=== PATIENT | male | born 1950 | race Caucasian/White ===

== ENCOUNTER 2018-10-02 01:55 | Inpatient (IN) | payer MEDICARE ==
--- NOTE | 2018-10-02 02:30 | ED Physician Chart ---
ED Chief Complaint/HPI - Patient Information Date Seen:: 10/02/18 Time Seen:: 02:15 Chief Complaint:: bilateral leg and right hip pain History of Present Illness:: Patient was experiencing bilateral leg and right hip pain at his extended care facility. He was given 8 mg of Dilaudid orally after which his blood pressure dropped to 85/53. Paramedics were called. He was cleared to come here by basic ambulance. His blood pressure increased to 116/70. He complains primarily of right hip pain. Patient is bedridden and wheelchair bound. No recent trauma. Allergies:: Allergies Allergy/AdvReac Type Severity Reaction Status Date / Time No Known Allergies Allergy Verified 10/02/18 02:04 Vitals:: Vital Signs - 8 hr 10/02/18 01:55 Temp 97.7 F HR 75 RR 18 BP 133/69 O2 Sat % 94 Historian:: Patient Review:: Nurse's Note Reviewed ED Review of Systems - Review of Systems General/Constitutional: No fever, No chills Skin: No skin lesions Head: No headache Eyes: No loss of vision ENT: No earache Neck: No neck pain Cardio Vascular: No chest pain, No palpitations Pulmonary: No SOB GI: No nausea, No vomiting, No diarrhea G/U: No dysuria Musculoskeletal: Bone or joint pain, Muscle pain Endocrine: No polyuria Psychiatric: No prior psych history Hematopoietic: No bruising Allergic/Immuno: No urticaria Neurological: No syncope ED Past Medical History - Past Medical History Past Medical History: Asthma/COPD, Other (status post sepsis; status post urinary tract infection; congestive heart failure; malnutrition; hyperlipidemia ; status post myocardial infarction; benign prostatic hypertrophy; neuropathy; hypertension; high clavicular line) Family History: None Social History: Smoker, Care Facility Surgical History: other (abdominal) Psychiatricy History: None Family Medical History - Family Member Mother History Unknown: Yes ED Physical Exam - Physical Examination General/Constitutional: Awake Other Gen/Cons comments:: Chronically ill-appearing Head: Atraumatic Eyes: Lids, conjuctiva normal, PERRL Skin: Nl inspection, No rash, No skin lesions, No ecchymosis ENMT: External ears, nose nl, Nasal exam nl, Lips, teeth, gums nl Neck: No nuchal rigidity Respiratory: Nl effort/Exclusion, Clear to Auscultation Cardio Vascular: RRR GI: No tenderness/rebounding/guarding : No CVA tenderness Extremities: No tenderness or effusion Other Extremities comments:: Mild extension deformity of ankles and feet Neuro/Psych: No focal deficits ED Labs/Radiology/EKG Results - Lab Results Results: Abnormal Lab Results 10/02/18 10/02/18 02:45 02:45 WBC 10.6 RBC 4.69 Hgb 15.0 Hct 44.1 MCV 94.1 MCH 32.0 H MCHC Differential 34.0 RDW 14.2 Plt Count 300 MPV 7.6 Neutrophils % 83.1 H Lymphocytes % 12.5 L Monocytes % 2.5 Eosinophils % 1.0 Basophils % 0.9 Sodium 138 Potassium 3.7 Chloride 103 Carbon Dioxide 25.7 Anion Gap 13.0 BUN 18 Creatinine 0.8 Est GFR ( Amer) > 60.0 Est GFR (Non-Af Amer) > 60.0 BUN/Creatinine Ratio 22.5 Glucose 113 H Calcium 9.7 Total Bilirubin 0.3 AST 12 L ALT 14 Alkaline Phosphatase 79 Total Protein 6.8 Albumin 3.7 L Globulin 3.1 Albumin/Globulin Ratio 1.2 - EKG Interpretations Rate & Rhythm: normal sinus rhythm with a rate of 75 [place]: normal axis ED Septic Shock - . Is Septic Shock (SBP<90, OR Lactate>4 mmol\L) present?: No - <6hrs of presentation: Vital Signs: Vital Signs - 8 hr 10/02/18 01:55 Temp 97.7 F HR 75 RR 18 BP 133/69 O2 Sat % 94 ED Reassessment (Disposition) - Reassessment Reassessment Condition:: Improved - Diagnosis Diagnosis:: Hypotension, subsided; multiple sclerosis; acute exacerbation of chronic pain - Patient Disposition Admitted to:: Telemetry Spoke to:: Chase Munoz Admitting Medical Physician:: Chase Munoz Condition at Disposition:: Stable, Unchanged
[2018-10-02 02:53] LABS: % BASOPHILS 0.9 % (0.0-2.0); % LYMPHOCYTES 12.5 % (20.0-50.0); % MONOCYTES 2.5 % (2.0-10.0); % NEUTROPHILS 83.1 % (40.0-80.0); BASOPHILE ABSOLUTE 0.1 Th/cumm (0-0.2); EOSINOPHILE ABSOLUTE 0.1 Th/cmm (0.1-0.4); HEMATOCRIT 44.1 % (41.0-60); LYMPHOCYTE ABSOLUTE 1.3 Th/cmm (1.5-3.0); MEAN CELL VOLUME 94.1 fl (80-99); MEAN PLATELET VOLUME 7.6 fl; MONOCYTE ABSOLUTE 0.3 Th/cmm (0.3-1.0); NEUTROPHILE ABSOLUTE 8.8 Th/cmm (1.8-8.0); PLATELET COUNT 300 Th/cmm (150-400); RED BLOOD COUNT 4.69 Mil/cmm (3.80-5.80); RED CELL DISTRIBUTION WIDTH 14.2 % (11.5-20.0); WHITE BLOOD COUNT 10.6 Th/cmm (4.8-10.8)
[2018-10-02 03:08] LABS: ALB/GLOB RATIO 1.2 (1.0-1.8); ALBUMIN 3.7 gm/dL (4.2-5.5); ALKALINE PHOSPHATASE 79 U/L (34-104); BILIRUBIN,TOTAL 0.3 mg/dL (0.3-1.0); BUN - UREA NITROGEN 18 mg/dL (7-25); CALCIUM SERUM 9.7 mg/dL (8.6-10.3); CARBON DIOXIDE 25.7 mEq/L (21.0-31.0); CHLORIDE 103 mEq/L (98-107); CREATININE - SERUM 0.8 mg/dL (0.7-1.3); GFR AFRICAN-AMERICAN > 60.0 ml/min (>90); GFR NON AFRICAN-AMERICAN > 60.0 ml/min; GLUCOSE 113 mg/dL (70-105); POTASSIUM SERUM 3.7 mEq/L (3.5-5.1); SGOT 12 U/L (13-39); SGPT/ALT 14 U/L (7-52); SODIUM SERUM 138 mEq/L (136-145); TOTAL PROTEIN,SERUM 6.8 gm/dL (6.0-8.3)
[2018-10-02] MEDS ORDERED: HYDROmorphone 1 mg/mL 1mL Syr IVP STA (06:39)
[2018-10-02] MEDS ORDERED: Sodium Chloride 0.9% 1,000 ML IV ONE (06:40)
[2018-10-02] MEDS ORDERED: HYDROmorphone 1 mg/mL 1mL Syr ONE (06:42)
[2018-10-02] MEDS ORDERED: HYDROmorphone 2 mg/mL 1mL Vial IVP PRN (07:02)
[2018-10-02] MEDS ORDERED: Albuterol/Ipratropium Neb 3 ML AERS HHN PRN (08:19)
[2018-10-02] MEDS ORDERED: Magnesium Hydroxide (MOM) 30 mL UDC PO PRN (08:20)
[2018-10-02] MEDS ORDERED: PROTEIN HYDROLYS PO SCH (09:00)
[2018-10-02] MEDS ORDERED: AMINO ACIDS PO SCH (09:00)
[2018-10-02] MEDS ORDERED: [UNRECOGNIZED DRUG - OTHER] PO SCH (09:00)
--- NOTE | 2018-10-02 09:39 | Diagnostic Imaging Report ---
Portable chest x-ray HISTORY: Cough The heart size appears somewhat generous. No focal pulmonary processes. No hilar or mediastinal abnormalities. IMPRESSION: 1. No acute pulmonary processes.
[2018-10-02] MEDS: Atorvastatin Calcium 10 MG TAB PO SCH (10:51)
[2018-10-02] MEDS: Aspirin 81mg Chewable Tab PO SCH (10:52)
[2018-10-02] MEDS: HYDROmorphone 2 mg/mL 1mL Vial IVP PRN ×3 (10:53→23:41)
[2018-10-02] MEDS: Enoxaparin 40 mg/0.4 mL 0.4mL Syr SUBQ SCH (10:54)
[2018-10-02] MEDS: fentaNYL 25 mcg/hr Tdm Patch TD SCH (12:53)
[2018-10-02] MEDS: Multivitamin Tab PO SCH (12:53)
--- NOTE | 2018-10-03 00:05 | History & Physical ---
ADMIT DATE: 10/02/2018 CHIEF COMPLAINT: Intractable severe bilateral leg pain. HISTORY OF PRESENT ILLNESS: The patient is a 68-year-old male admitted from the Emergency Room to telemetry floor of [facility] due to multiple complicated medical conditions. The patient complained of intractable pain in both legs and wanted to come to the Emergency Room and being admitted. The patient does have history of chronic pain syndrome, partially from polyneuropathy. The patient was seen by the pain specialist in the assisted, was given Dilaudid ___ p.o. q.4 hours. This apparently is in light of the fact the patient is obese. On physical examination, he has stage 3 decubitus ulcer in the sacral area. The patient also has COPD and his other RT protocol. According to the patient history, the patient has a history of coronary artery disease, status post KS with congestive heart failure. I will order BNP as it is not ordered. Additionally, the patient is also status post CVA and he also has history of multiple sclerosis. Because of this diagnosis, patient is being pretty much bedridden with resultant decubitus ulcer despite the fact the patient has been on vitamin C and zinc sulfate. PAST MEDICAL HISTORY: Extensive; polyneuropathy, chronic pain syndrome, decubitus ulcer as a result, COPD, congestive heart failure from coronary artery disease, status post KS, status post CVA, multiple sclerosis, obesity. PAST SURGICAL HISTORY: Denies significant past surgical history. MEDICATIONS: See medication reconciliation list. ALLERGIES: No known drug allergy. FAMILY HISTORY: Noncontributory. SOCIAL HISTORY: Denies history of tobacco, alcohol or IV drug abuse. REVIEW OF SYSTEMS: Per HPI. PHYSICAL EXAMINATION: GENERAL: Well-developed, obese male in no acute distress. SKIN: There is stage 3 decubitus ulcer in sacral area. EXTREMITIES: No clubbing or cyanosis. There is 1+ edema. NEUROLOGICAL: Unremarkable. LABORATORY DATA: Reviewed as seen from the computer. ASSESSMENT AND PLAN: 1. Decubitus ulcer stage 3 in sacral area: Will turn patient every 2 hours and continue zinc sulfate, vitamin C to facilitate wound healing, also wound care daily. 2. Chronic obstructive pulmonary disease exacerbation: RT protocol. 3. History of polyneuropathy, severe with chronic pain syndrome. We are adjusting per medications needed. 4. Congestive heart failure: I will order BNP and it is properly due to coronary artery disease, status post myocardial infarction. 5. Status post CVA with difficulty walking. 6. History of multiple sclerosis. 7. Obesity. 8. DVT prophylaxis. JOB# [id number]
[2018-10-03] MEDS ORDERED: Pneumococcal Vaccine 0.5 mL Vial IM ONE (09:00)
[2018-10-03] MEDS ORDERED: Influenza Vaccine (65 yr & older) 0.5 ml Syr IM ONE (09:00)
[2018-10-03] MEDS: Atorvastatin Calcium 10 MG TAB PO SCH (09:11)
[2018-10-03] MEDS: Multivitamin Tab PO SCH (09:13)
[2018-10-03] MEDS: Aspirin 81mg Chewable Tab PO SCH (09:13)
[2018-10-03] MEDS: Enoxaparin 40 mg/0.4 mL 0.4mL Syr SUBQ SCH (09:14)
[2018-10-03] MEDS: HYDROmorphone 2 mg/mL 1mL Vial IVP PRN ×5 (09:26→23:05)
--- NOTE | 2018-10-03 23:43 | Internal Medicine Prog Note ---
Internal Medicine Subjective - Subjective Service Date: 10/03/18 Patient seen and examined:: without staff Patient is:: asleep, eyes closed, in bed Per staff patient has:: no adverse event Internal Medicine Objective - Results Result Diagrams: 10/02/18 02:45 10/02/18 02:45 Recent Labs: Laboratory Last Values WBC 10.6 Th/cmm (4.8-10.8) 10/02/18 02:45 RBC 4.69 Mil/cmm (3.80-5.80) 10/02/18 02:45 Hgb 15.0 gm/dL (12-16) 10/02/18 02:45 Hct 44.1 % (41.0-60) 10/02/18 02:45 MCV 94.1 fl (80-99) 10/02/18 02:45 MCH 32.0 pg (27.0-31.0) H 10/02/18 02:45 MCHC Differential 34.0 pg (28.0-36.0) 10/02/18 02:45 RDW 14.2 % (11.5-20.0) 10/02/18 02:45 Plt Count 300 Th/cmm (150-400) 10/02/18 02:45 MPV 7.6 fl 10/02/18 02:45 Neutrophils % 83.1 % (40.0-80.0) H 10/02/18 02:45 Lymphocytes % 12.5 % (20.0-50.0) L 10/02/18 02:45 Monocytes % 2.5 % (2.0-10.0) 10/02/18 02:45 Eosinophils % 1.0 % (0.0-5.0) 10/02/18 02:45 Basophils % 0.9 % (0.0-2.0) 10/02/18 02:45 Sodium 138 mEq/L (136-145) 10/02/18 02:45 Potassium 3.7 mEq/L (3.5-5.1) 10/02/18 02:45 Chloride 103 mEq/L (98-107) 10/02/18 02:45 Carbon Dioxide 25.7 mEq/L (21.0-31.0) 10/02/18 02:45 Anion Gap 13.0 (7.0-16.0) 10/02/18 02:45 BUN 18 mg/dL (7-25) 10/02/18 02:45 Creatinine 0.8 mg/dL (0.7-1.3) 10/02/18 02:45 Est GFR ( Amer) > 60.0 ml/min (>90) 10/02/18 02:45 Est GFR (Non-Af Amer) > 60.0 ml/min 10/02/18 02:45 BUN/Creatinine Ratio 22.5 10/02/18 02:45 Glucose 113 mg/dL (70-105) H 10/02/18 02:45 Calcium 9.7 mg/dL (8.6-10.3) 10/02/18 02:45 Total Bilirubin 0.3 mg/dL (0.3-1.0) 10/02/18 02:45 AST 12 U/L (13-39) L 10/02/18 02:45 ALT 14 U/L (7-52) 10/02/18 02:45 Alkaline Phosphatase 79 U/L (34-104) 10/02/18 02:45 Total Protein 6.8 gm/dL (6.0-8.3) 10/02/18 02:45 Albumin 3.7 gm/dL (4.2-5.5) L 10/02/18 02:45 Globulin 3.1 gm/dL 10/02/18 02:45 Albumin/Globulin Ratio 1.2 (1.0-1.8) 10/02/18 02:45 - Physical Exam Vitals and I&O: Vital Signs Temp 98.5 F 10/03/18 20:00 Pulse 65 10/03/18 20:00 Resp 18 10/03/18 20:00 BP 130/67 10/03/18 20:00 Pulse Ox 97 10/03/18 20:00 Intake & Output 10/03/18 10/03/18 10/04/18 06:59 18:59 06:59 Intake Total 600 Output Total 1200 Balance -600 Weight (lbs) 90.265 kg Intake: Oral 600 Output: Urine 1200 Other: # Bowel Movements 1 Stool Characteristics Formed Weight Source Bedscale Active Medications: Current Medications Acetaminophen (Tylenol) 325 mg PO Q6HR PRN PRN Reason: Pain (Mild) Stop: 12/01/18 08:18 Last Admin: 11/16/18 21:26 Dose: 325 mg Albuterol/Ipratropium (Duoneb Neb) 3 ml HHN Q6HR PRN PRN Reason: Shortness of Breath Stop: 12/01/18 08:18 Ascorbic Acid (Vitamin C) 500 mg PO DAILY [facility] Stop: 12/01/18 10:59 Last Admin: 10/03/18 09:13 Dose: 500 mg Aspirin (Aspirin Chewable) 81 mg PO DAILY [facility] Stop: 12/01/18 08:59 Last Admin: 10/03/18 09:13 Dose: 81 mg Atorvastatin Calcium (Lipitor) 20 mg PO DAILY [facility] Stop: 12/01/18 10:59 Last Admin: 10/03/18 09:11 Dose: 20 mg Baclofen (Lioresal) 10 mg PO QID [facility] Stop: 12/01/18 08:59 Last Admin: 10/03/18 20:58 Dose: 10 mg Bisacodyl (Dulcolax 10 Mg Supp) 10 mg RC DAILY PRN PRN Reason: Constipation Stop: 12/01/18 08:19 Diazepam (Valium) 5 mg PO BID [facility]; Protocol Stop: 12/01/18 08:59 Diazepam (Valium) 5 mg PO BID [facility]; Protocol Stop: 12/01/18 21:59 Last Admin: 10/03/18 16:19 Dose: 5 mg Docusate Sodium (Colace) 100 mg PO DAILY [facility] Stop: 12/01/18 08:59 Last Admin: 10/03/18 09:12 Dose: 100 mg Duloxetine HCl (Cymbalta) 30 mg PO DAILY [facility]; Protocol Stop: 12/01/18 08:59 Enoxaparin Sodium (Lovenox) 40 mg SUBQ DAILY [facility] Stop: 12/01/18 08:59 Last Admin: 10/03/18 09:14 Dose: 40 mg Fentanyl (Duragesic 25 Mcg/Hr Tdm Patch) 1 patch TD Q72HR [facility]; Protocol Stop: 12/01/18 11:59 Last Admin: 10/02/18 12:53 Dose: 1 patch Finasteride (Proscar) 5 mg PO DAILY [facility]; Protocol Stop: 12/01/18 08:59 Last Admin: 10/03/18 09:12 Dose: 5 mg Folic Acid (Folate) 1 mg PO DAILY [facility] Stop: 12/01/18 08:59 Last Admin: 10/03/18 09:12 Dose: 1 mg Furosemide (Lasix) 20 mg PO DAILY [facility] Stop: 12/01/18 08:59 Last Admin: 10/03/18 09:12 Dose: 20 mg Gabapentin (Neurontin) 1,200 mg PO TID [facility] Stop: 12/01/18 10:44 Last Admin: 10/03/18 20:58 Dose: 1,200 mg Hydromorphone HCl (Dilaudid) 2 mg IVP Q4HR PRN PRN Reason: Severe Pain Stop: 12/01/18 10:36 Last Admin: 10/03/18 23:05 Dose: 2 mg Hydromorphone HCl (Dilaudid) 8 mg PO Q4H PRN PRN Reason: Pain (Moderate) Stop: 10/09/18 08:19 Hydromorphone HCl (Dilaudid) 2 mg IVP Q4HR PRN PRN Reason: severe pain Stop: 12/01/18 22:04 Last Admin: 10/03/18 19:18 Dose: 2 mg Lorazepam (Ativan) 1 mg PO Q6HR PRN; Protocol PRN Reason: Anxiety Stop: 12/01/18 08:19 Magnesium Hydroxide (Milk Of Magnesia) 30 ml PO HS PRN PRN Reason: Constipation Stop: 12/01/18 08:19 Multivitamins/Vitamin C (Theragran) 1 tab PO DAILY [facility] Stop: 12/01/18 10:59 Last Admin: 10/03/18 09:13 Dose: 1 tab Senna (Senna) 8.6 mg PO HS [facility] Stop: 12/01/18 20:59 Last Admin: 10/03/18 20:59 Dose: 8.6 mg Spironolactone (Aldactone) 25 mg PO DAILY [facility] Stop: 12/01/18 08:59 Last Admin: 10/03/18 09:13 Dose: 25 mg Tamsulosin HCl (Flomax) 0.4 mg PO DAILY [facility] Stop: 12/01/18 08:59 Last Admin: 10/03/18 09:13 Dose: 0.4 mg Zinc Sulfate (Zinc Sulfate) 220 mg PO DAILY [facility] Stop: 12/01/18 10:59 Last Admin: 10/03/18 09:11 Dose: 220 mg General: weak, lethargic, congested HEENT: NC/AT, PERRLA, EOMI, anicteric sclerae Neck: Supple, No JVD, No thyromegaly, No LAD Lungs: wheezing Cardiovascular: RRR Abdomen: soft, non-tender Extremities: edema, other Neurological: no change Internal Medicine Assmt/Plan - Assessment Assessment: Chronic pain syndrome exacerbation: adjusting pain meds as needed. Decubitus ulcer: stage 3 in sacral area; wound care, turn pt q2h; continue Zinc sulfate and VitC to facilitate wound heeling. COPD: RT protocol. CHF: stable. CAD: s/p PA s/p CVA ALOC: improving. h/o MS DVT prophylaxis Nutritional Asmnt/Malnutr-PDOC - Dietary Evaluation Malnutrition Findings (Please click <Entered> for more info): Nutritional Asmnt/Malnutrition Start: 10/03/18 12: 03 Text: Status: Complete Freq: Protocol: Document 10/03/18 12:45 MMULHERN (Rec: 10/03/18 12:55 MMULHERN ROBINA- [id number]) Nutritional Asmnt/Malnutrition Patient General Information Nutritional Screening High Risk Consult Diagnosis Exacerbation of chronic pain, multiple sclerosis Pertinent Medical Hx/Surgical Hx Polyneuropathy, chronic pain syndrome, decubitus ulcer, COPD, congestive heart failure from coronary artery disease, status post PA, status post CVA, multiple sclerosis, Obesity Subjective Information Consult received for left lateral and medial malleoli ulcers. Patient in bed at time of visit. States he has no problems with chewing or swallowing and has no difficulty with current diet order. Familiar with cardiac diet. Current Diet Order/ Nutrition Support Cardiac Patient / S.O Not Indicated Pertinent Medications Vitamin C, lipitor, dulcolax, colace, folate, lasix, MOM, theragran, zinc sulfate Pertinent Labs (10/02) albumin 3.7 Nutritional Hx/Data Height 1.83 m Height (Calculated Centimeters) 182.9 Current Weight (lbs) 102.058 kg Weight (Calculated Kilograms) 102.1 Weight (Calculated Grams) 853402.3 [place] Body Weight 178 % [place] Body Weight 126 Body Mass Index (BMI) 30.5 Recent Weight Change No Weight Status Obese GI Symptoms GI Symptoms None Last BM 10/04 x1 Difficult in: None Food Allergies No Cultural/Ethnic/Jewish Belief none indicated Usual diet at home unknown Skin Integrity/Comment: [place] 13, per wound care notes, wounds on Sacral- Coccygeal area, Left buttock near ischium, Right posterior heel, Right medial heel/foot, Left heel, Left dorsal foot: Estimated Nutritional Goals BEE in Kcals: Adj wt of IBW Calories/Kcals/Kg using 86.2kg Adj wt 25-30 kcal /kg Kcals Calculated ~3124-3089 kcal/day Protein: Adj wt of IBW Protein g/k.1-1.3 gm/kg - wounds Protein Calculated 95-110 gm/day Fluid: ml ~7604-0509 kcal/day Nutritional Problem 1. Problem Problem Increased nutrient needs related to Etiology impaired skin integrity as evidenced by Signs/Symptoms: wounds on Sacral-Coccygeal area, Left buttock near ischium, Right posterior heel, Right medial heel/foot, Left heel, Left dorsal foot Intervention/Recommendation Comments 1. Continue Cardiac diet as tolerated by patient d/t cardiac hx. 2. If oral intake is adequate, current diet order provides adequate protein. 3. Continue MVI, Vitamin C, and Zinc supplementation to assist with wound healing. Expected Outcomes/Goals Expected Outcomes/Goals Oral intake >75% of meals, weight stable or trend toward ideal body weight, improved skin integrity F/U MR 10/06-
[2018-10-04] MEDS: HYDROmorphone 2 mg/mL 1mL Vial IVP PRN ×5 (04:56→21:08)
[2018-10-04] MEDS: Atorvastatin Calcium 10 MG TAB PO SCH (09:00)
[2018-10-04] MEDS: Enoxaparin 40 mg/0.4 mL 0.4mL Syr SUBQ SCH (09:00)
[2018-10-04] MEDS: Aspirin 81mg Chewable Tab PO SCH (09:01)
[2018-10-04] MEDS: Multivitamin Tab PO SCH (09:07)
--- NOTE | 2018-10-04 21:53 | Internal Medicine Prog Note ---
Internal Medicine Subjective - Subjective Service Date: 10/04/18 Patient seen and examined:: without staff Patient is:: verbal, interactive, in bed Patient Complaints of:: congestion Per staff patient has:: no adverse event Internal Medicine Objective - Results Result Diagrams: 10/02/18 02:45 10/02/18 02:45 Recent Labs: Laboratory Last Values WBC 10.6 Th/cmm (4.8-10.8) 10/02/18 02:45 RBC 4.69 Mil/cmm (3.80-5.80) 10/02/18 02:45 Hgb 15.0 gm/dL (12-16) 10/02/18 02:45 Hct 44.1 % (41.0-60) 10/02/18 02:45 MCV 94.1 fl (80-99) 10/02/18 02:45 MCH 32.0 pg (27.0-31.0) H 10/02/18 02:45 MCHC Differential 34.0 pg (28.0-36.0) 10/02/18 02:45 RDW 14.2 % (11.5-20.0) 10/02/18 02:45 Plt Count 300 Th/cmm (150-400) 10/02/18 02:45 MPV 7.6 fl 10/02/18 02:45 Neutrophils % 83.1 % (40.0-80.0) H 10/02/18 02:45 Lymphocytes % 12.5 % (20.0-50.0) L 10/02/18 02:45 Monocytes % 2.5 % (2.0-10.0) 10/02/18 02:45 Eosinophils % 1.0 % (0.0-5.0) 10/02/18 02:45 Basophils % 0.9 % (0.0-2.0) 10/02/18 02:45 Sodium 138 mEq/L (136-145) 10/02/18 02:45 Potassium 3.7 mEq/L (3.5-5.1) 10/02/18 02:45 Chloride 103 mEq/L (98-107) 10/02/18 02:45 Carbon Dioxide 25.7 mEq/L (21.0-31.0) 10/02/18 02:45 Anion Gap 13.0 (7.0-16.0) 10/02/18 02:45 BUN 18 mg/dL (7-25) 10/02/18 02:45 Creatinine 0.8 mg/dL (0.7-1.3) 10/02/18 02:45 Est GFR ( Amer) > 60.0 ml/min (>90) 10/02/18 02:45 Est GFR (Non-Af Amer) > 60.0 ml/min 10/02/18 02:45 BUN/Creatinine Ratio 22.5 10/02/18 02:45 Glucose 113 mg/dL (70-105) H 10/02/18 02:45 Calcium 9.7 mg/dL (8.6-10.3) 10/02/18 02:45 Total Bilirubin 0.3 mg/dL (0.3-1.0) 10/02/18 02:45 AST 12 U/L (13-39) L 10/02/18 02:45 ALT 14 U/L (7-52) 10/02/18 02:45 Alkaline Phosphatase 79 U/L (34-104) 10/02/18 02:45 Total Protein 6.8 gm/dL (6.0-8.3) 10/02/18 02:45 Albumin 3.7 gm/dL (4.2-5.5) L 10/02/18 02:45 Globulin 3.1 gm/dL 10/02/18 02:45 Albumin/Globulin Ratio 1.2 (1.0-1.8) 10/02/18 02:45 - Physical Exam Vitals and I&O: Vital Signs Temp 97.6 F 10/04/18 20:00 Pulse 68 10/04/18 20:00 Resp 18 10/04/18 20:00 BP 134/69 10/04/18 20:00 Pulse Ox 97 10/04/18 20:00 Intake & Output 10/04/18 10/04/18 10/05/18 06:59 18:59 06:59 Intake Total 240 1150 Output Total 1500 1200 Balance -1260 -50 Weight (lbs) 90.265 kg 90.265 kg Intake: Oral 240 1150 Output: Urine 1500 1200 Other: # Bowel Movements 0 0 Weight Source Bedscale Bedscale Active Medications: Current Medications Acetaminophen (Tylenol) 325 mg PO Q6HR PRN PRN Reason: Pain (Mild) Stop: 12/01/18 08:18 Last Admin: 10/02/18 21:26 Dose: 325 mg Albuterol/Ipratropium (Duoneb Neb) 3 ml HHN Q6HR PRN PRN Reason: Shortness of Breath Stop: 12/01/18 08:18 Ascorbic Acid (Vitamin C) 500 mg PO DAILY [facility] Stop: 12/01/18 10:59 Last Admin: 10/04/18 09:00 Dose: 500 mg Aspirin (Aspirin Chewable) 81 mg PO DAILY [facility] Stop: 12/01/18 08:59 Last Admin: 10/04/18 09:01 Dose: 81 mg Atorvastatin Calcium (Lipitor) 20 mg PO DAILY [facility] Stop: 12/01/18 10:59 Last Admin: 10/04/18 09:00 Dose: 20 mg Baclofen (Lioresal) 10 mg PO QID [facility] Stop: 12/01/18 08:59 Last Admin: 10/04/18 21:07 Dose: 10 mg Bisacodyl (Dulcolax 10 Mg Supp) 10 mg RC DAILY PRN PRN Reason: Constipation Stop: 12/01/18 08:19 Diazepam (Valium) 5 mg PO BID [facility]; Protocol Stop: 12/01/18 08:59 Diazepam (Valium) 5 mg PO BID [facility]; Protocol Stop: 12/01/18 21:59 Last Admin: 10/04/18 17:05 Dose: 5 mg Docusate Sodium (Colace) 100 mg PO DAILY [facility] Stop: 12/01/18 08:59 Last Admin: 10/04/18 09:00 Dose: 100 mg Duloxetine HCl (Cymbalta) 30 mg PO DAILY [facility]; Protocol Stop: 12/01/18 08:59 Enoxaparin Sodium (Lovenox) 40 mg SUBQ DAILY [facility] Stop: 12/01/18 08:59 Last Admin: 10/04/18 09:00 Dose: 40 mg Fentanyl (Duragesic 25 Mcg/Hr Tdm Patch) 1 patch TD Q72HR [facility]; Protocol Stop: 12/01/18 11:59 Last Admin: 10/02/18 12:53 Dose: 1 patch Finasteride (Proscar) 5 mg PO DAILY [facility]; Protocol Stop: 12/01/18 08:59 Last Admin: 10/04/18 09:01 Dose: 5 mg Folic Acid (Folate) 1 mg PO DAILY [facility] Stop: 12/01/18 08:59 Last Admin: 10/04/18 09:00 Dose: 1 mg Furosemide (Lasix) 20 mg PO DAILY [facility] Stop: 12/01/18 08:59 Last Admin: 10/04/18 09:00 Dose: 20 mg Gabapentin (Neurontin) 1,200 mg PO TID [facility] Stop: 12/01/18 10:44 Last Admin: 10/04/18 21:07 Dose: 1,200 mg Hydromorphone HCl (Dilaudid) 2 mg IVP Q4HR PRN PRN Reason: Severe Pain Stop: 12/01/18 10:36 Last Admin: 10/04/18 21:08 Dose: 2 mg Hydromorphone HCl (Dilaudid) 8 mg PO Q4H PRN PRN Reason: Pain (Moderate) Stop: 10/09/18 08:19 Hydromorphone HCl (Dilaudid) 2 mg IVP Q4HR PRN PRN Reason: severe pain Stop: 12/01/18 22:04 Last Admin: 10/03/18 19:18 Dose: 2 mg Lorazepam (Ativan) 1 mg PO Q6HR PRN; Protocol PRN Reason: Anxiety Stop: 12/01/18 08:19 Magnesium Hydroxide (Milk Of Magnesia) 30 ml PO HS PRN PRN Reason: Constipation Stop: 12/01/18 08:19 Multivitamins/Vitamin C (Theragran) 1 tab PO DAILY [facility] Stop: 12/01/18 10:59 Last Admin: 10/04/18 09:07 Dose: 1 tab Senna (Senna) 8.6 mg PO HS [facility] Stop: 12/01/18 20:59 Last Admin: 10/04/18 21:08 Dose: 8.6 mg Spironolactone (Aldactone) 25 mg PO DAILY [facility] Stop: 12/01/18 08:59 Last Admin: 10/04/18 09:07 Dose: 25 mg Tamsulosin HCl (Flomax) 0.4 mg PO DAILY [facility] Stop: 12/01/18 08:59 Last Admin: 10/04/18 09:06 Dose: 0.4 mg Zinc Sulfate (Zinc Sulfate) 220 mg PO DAILY [facility] Stop: 12/01/18 10:59 Last Admin: 10/04/18 09:06 Dose: 220 mg General: weak, congested, alert HEENT: NC/AT, PERRLA, EOMI, anicteric sclerae Neck: Supple, No JVD, No thyromegaly, No LAD Lungs: wheezing Cardiovascular: RRR Abdomen: soft, non-tender Extremities: edema, other Neurological: no change Internal Medicine Assmt/Plan - Assessment Assessment: Decubitus ulcer: stage 3 in sacral area; wound care, turn pt q2h; continue Zinc sulfate and VitC to facilitate wound heeling. Chronic pain syndrome exacerbation: adjusting pain meds as needed. COPD: RT protocol. CHF: stable. CAD: s/p IA s/p CVA ALOC: improving. h/o MS DVT prophylaxis Nutritional Asmnt/Malnutr-PDOC - Dietary Evaluation Malnutrition Findings (Please click <Entered> for more info): Nutritional Asmnt/Malnutrition Start: 10/03/18 12: 03 Text: Status: Complete Freq: Protocol: Document 10/03/18 12:45 MMULHERN (Rec: 10/03/18 12:55 MMULHERN ROBINA- [id number]) Nutritional Asmnt/Malnutrition Patient General Information Nutritional Screening High Risk Consult Diagnosis Exacerbation of chronic pain, multiple sclerosis Pertinent Medical Hx/Surgical Hx Polyneuropathy, chronic pain syndrome, decubitus ulcer, COPD, congestive heart failure from coronary artery disease, status post IA, status post CVA, multiple sclerosis, Obesity Subjective Information Consult received for left lateral and medial malleoli ulcers. Patient in bed at time of visit. States he has no problems with chewing or swallowing and has no difficulty with current diet order. Familiar with cardiac diet. Current Diet Order/ Nutrition Support Cardiac Patient / S.O Not Indicated Pertinent Medications Vitamin C, lipitor, dulcolax, colace, folate, lasix, MOM, theragran, zinc sulfate Pertinent Labs (10/02) albumin 3.7 Nutritional Hx/Data Height 1.83 m Height (Calculated Centimeters) 182.9 Current Weight (lbs) 102.058 kg Weight (Calculated Kilograms) 102.1 Weight (Calculated Grams) 117811.3 [place] Body Weight 178 % [place] Body Weight 126 Body Mass Index (BMI) 30.5 Recent Weight Change No Weight Status Obese GI Symptoms GI Symptoms None Last BM 10/04 x1 Difficult in: None Food Allergies No Cultural/Ethnic/Scientologist Belief none indicated Usual diet at home unknown Skin Integrity/Comment: [place] 13, per wound care notes, wounds on Sacral- Coccygeal area, Left buttock near ischium, Right posterior heel, Right medial heel/foot, Left heel, Left dorsal foot: Estimated Nutritional Goals BEE in Kcals: Adj wt of IBW Calories/Kcals/Kg using 86.2kg Adj wt 25-30 kcal /kg Kcals Calculated ~7870-5413 kcal/day Protein: Adj wt of IBW Protein g/k.1-1.3 gm/kg - wounds Protein Calculated 95-110 gm/day Fluid: ml ~2716-0916 kcal/day Nutritional Problem 1. Problem Problem Increased nutrient needs related to Etiology impaired skin integrity as evidenced by Signs/Symptoms: wounds on Sacral-Coccygeal area, Left buttock near ischium, Right posterior heel, Right medial heel/foot, Left heel, Left dorsal foot Intervention/Recommendation Comments 1. Continue Cardiac diet as tolerated by patient d/t cardiac hx. 2. If oral intake is adequate, current diet order provides adequate protein. 3. Continue MVI, Vitamin C, and Zinc supplementation to assist with wound healing. Expected Outcomes/Goals Expected Outcomes/Goals Oral intake >75% of meals, weight stable or trend toward ideal body weight, improved skin integrity F/U MR 10/06-
[2018-10-05] MEDS: HYDROmorphone 2 mg/mL 1mL Vial IVP PRN ×6 (01:50→19:15)
[2018-10-05 04:39] LABS: % BASOPHILS 0.5 % (0.0-2.0); % EOSINOPHILS 3.7 % (0.0-5.0); % LYMPHOCYTES 26.3 % (20.0-50.0); % NEUTROPHILS 63.5 % (40.0-80.0); EOSINOPHILE ABSOLUTE 0.2 Th/cmm (0.1-0.4); HEMATOCRIT 44.2 % (41.0-60); HEMOGLOBIN 14.3 gm/dL (12-16); LYMPHOCYTE ABSOLUTE 1.7 Th/cmm (1.5-3.0); MEAN CELL VOLUME 94.8 fl (80-99); MEAN CORPUSCULAR HEMOGLOBIN 30.7 pg (27.0-31.0); MEAN CORPUSCULAR HGB CONC 32.4 pg (28.0-36.0); MEAN PLATELET VOLUME 7.8 fl; MONOCYTE ABSOLUTE 0.4 Th/cmm (0.3-1.0); PLATELET COUNT 288 Th/cmm (150-400); RED BLOOD COUNT 4.66 Mil/cmm (3.80-5.80); RED CELL DISTRIBUTION WIDTH 14.1 % (11.5-20.0); WHITE BLOOD COUNT 6.3 Th/cmm (4.8-10.8)
[2018-10-05 05:14] LABS: ALB/GLOB RATIO 1.2 (1.0-1.8); ALBUMIN 3.5 gm/dL (4.2-5.5); ALKALINE PHOSPHATASE 69 U/L (34-104); ANION GAP 11.9 (7.0-16.0); BILIRUBIN,TOTAL 0.4 mg/dL (0.3-1.0); BUN - UREA NITROGEN 17 mg/dL (7-25); CALCIUM SERUM 9.6 mg/dL (8.6-10.3); CARBON DIOXIDE 27.8 mEq/L (21.0-31.0); CHLORIDE 105 mEq/L (98-107); CREATININE - SERUM 0.9 mg/dL (0.7-1.3); GFR AFRICAN-AMERICAN > 60.0 ml/min (>90); GFR NON AFRICAN-AMERICAN > 60.0 ml/min; GLUCOSE 98 mg/dL (70-105); POTASSIUM SERUM 3.7 mEq/L (3.5-5.1); SGOT 14 U/L (13-39); SGPT/ALT 14 U/L (7-52); SODIUM SERUM 141 mEq/L (136-145); TOTAL PROTEIN,SERUM 6.5 gm/dL (6.0-8.3)
[2018-10-05] MEDS: Atorvastatin Calcium 10 MG TAB PO SCH (08:21)
[2018-10-05] MEDS: Multivitamin Tab PO SCH (08:22)
[2018-10-05] MEDS: Aspirin 81mg Chewable Tab PO SCH (08:22)
[2018-10-05] MEDS: Enoxaparin 40 mg/0.4 mL 0.4mL Syr SUBQ SCH (08:23)
[2018-10-05] MEDS: fentaNYL 25 mcg/hr Tdm Patch TD SCH (11:54)
[2018-10-05] MEDS ORDERED: Influenza Vaccine (65 yr & older) 0.5 ml Syr IM ONE (17:19)
[2018-10-05] MEDS ORDERED: Pneumococcal Vaccine 0.5 mL Vial IM ONE (17:20)
== END 2018-10-05 21:50 | DRG 190 ==
LOC: ER 01:55 → TELE 06:44
PROVIDERS: ADMIT Internal Medicine; ATTEND Internal Medicine
DX: J44.1 Chronic obstructive pulmonary disease with (acute) exacerbation (principal); L89.153 Pressure ulcer of sacral region, stage 3; G62.9 Polyneuropathy, unspecified; I50.9 Heart failure, unspecified; G35 Multiple sclerosis; J44.9 Chronic obstructive pulmonary disease, unspecified; E78.5 Hyperlipidemia, unspecified; I25.2 Old myocardial infarction; N40.0 Benign prostatic hyperplasia without lower urinary tract symptoms; I11.0 Hypertensive heart disease with heart failure; I25.10 Atherosclerotic heart disease of native coronary artery without angina pectoris; F17.210 Nicotine dependence, cigarettes, uncomplicated; I95.9 Hypotension, unspecified; G89.4 Chronic pain syndrome; Z86.73 Personal history of transient ischemic attack (TIA), and cerebral infarction without residual deficits; Z74.01 Bed confinement status
CPT/HCPCS: 36415-UA; 71045-TC; 80053-TC; 85025-TC; 90732; 93005; 94760; 96374; J1170; J1650; J7030; Z7610

== ENCOUNTER 2018-10-23 01:03 | Inpatient (IN) | payer MEDICARE ==
--- NOTE | 2018-10-23 01:40 | ED Physician Chart ---
ED Chief Complaint/HPI - Patient Information Date Seen:: 10/23/18 Time Seen:: 01:35 Chief Complaint:: Griffin catheter out History of Present Illness:: Patient's griffin catheter was noted to be out and blood was present in his diaper. Allergies:: Allergies Allergy/AdvReac Type Severity Reaction Status Date / Time No Known Allergies Allergy Verified 10/23/18 01:24 Vitals:: Vital Signs - 8 hr 10/23/18 01:15 Temp 98.2 F HR 110 RR 18 BP 110/59 O2 Sat % 93 Historian:: Medical Records Review:: Transfer documents Reviewed ED Review of Systems - Review of Systems General/Constitutional: No fever, No chills, No weight loss, No weakness, No diaphoresis, No edema, No loss of appetite Skin: No skin lesions, No rash, No bruising Head: No headache, No light-headedness Eyes: No loss of vision, No pain, No diplopia ENT: No earache, No nasal drainage, No sore throat, No tinnitus Neck: No neck pain, No swelling, No thyromegaly, No stiffness, No mass noted Cardio Vascular: No chest pain, No palpitations, No PND, No orthopnea, No edema Pulmonary: No SOB, No cough, No sputum, No wheezing GI: No nausea, No vomiting, No diarrhea, No pain, No melena, No hematochezia, No constipation, No hematemesis G/U: Other (see history and physical) Musculoskeletal: No bone or joint pain, No back pain, No muscle pain Endocrine: No polyuria, No polydipsia Psychiatric: No prior psych history, No depression, No anxiety, No suicidal ideation Hematopoietic: No bruising, No lymphadenopathy Allergic/Immuno: No urticaria, No angioedema Neurological: No syncope, No focal symptoms, No weakness, No paresthesia, No headache, No seizure, No dizziness, No confusion, No vertigo ED Past Medical History - Past Medical History Past Medical History: HTN, Asthma/COPD, Dyslipidemia, Other (status post sepsis ; status post urinary tract infection; status post congestive heart failure; malnutrition; hyperlipidemia status post myocardial infarction; benign prostatic hypertrophy; polyneuropathy) Family History: Other (unknown) Social History: Care Facility Surgical History: other (prednisone) Psychiatricy History: Other (unknown) Family Medical History - Family Member Mother History Unknown: Yes ED Physical Exam - Physical Examination Other Gen/Cons comments:: Chronically ill-appearing; nonverbal Head: Atraumatic Other Eyes comments:: I does appear depressed Skin: Nl inspection ENMT: External ears, nose nl Other Neck comments:: neck stiff Respiratory: Nl effort/Exclusion, Clear to Auscultation Other Cardio Vascular comments:: Heart sounds and audible; pulse regular GI: Normal BS's Other GI comments:: Bladder. bladder appears distended up to umbilicus with lower abdominal tenderness Other comments:: She cc of blood noted in diaper; hypospadias Extremities: Normal digits & nails Other Neuro/Psych comments:: Nonverbal ED Labs/Radiology/EKG Results - Lab Results Results: Abnormal Lab Results 10/23/18 10/23/18 10/23/18 01:49 01:49 01:49 WBC 35.8 H* D RBC 5.29 Hgb 16.7 Hct 50.0 MCV 94.6 MCH 31.5 H MCHC Differential 33.4 RDW 14.4 Plt Count 354 MPV 8.1 Add Manual Diff YES Band Neutrophils % 8 Neutrophils (Manual) 90 H Lymphocytes 2 L Platelet Estimate ADEQUATE PT 10.0 INR 0.96 PTT (Actin FS) 27.6 Sodium 133 L Potassium 3.2 L Chloride 100 Carbon Dioxide 20.9 L Anion Gap 15.3 BUN 20 Creatinine 1.1 Est GFR ( Amer) > 60.0 Est GFR (Non-Af Amer) > 60.0 BUN/Creatinine Ratio 18.2 Glucose 152 H Whole Bld Lactic Acid Calcium 9.9 10/23/18 01:49 WBC RBC Hgb Hct MCV MCH MCHC Differential RDW Plt Count MPV Add Manual Diff Band Neutrophils % Neutrophils (Manual) Lymphocytes Platelet Estimate PT INR PTT (Actin FS) Sodium Potassium Chloride Carbon Dioxide Anion Gap BUN Creatinine Est GFR ( Amer) Est GFR (Non-Af Amer) BUN/Creatinine Ratio Glucose Whole Bld Lactic Acid 3.01 H* Calcium ED Assessment - Assessment General Assessment: It is not appropriate to try to reinsert a Griffin catheter since the blood noted on the diaper indicates he may have an injury to his prostate or urethra and reinserting the Griffin may make the injury worse. ED Septic Shock - . Is Septic Shock (SBP<90, OR Lactate>4 mmol\L) present?: No - <6hrs of presentation: Vital Signs: Vital Signs - 8 hr 10/23/18 01:15 Temp 98.2 F HR 110 RR 18 BP 110/59 O2 Sat % 93 ED Reassessment (Disposition) - Reassessment Reassessment Condition:: Unchanged - Diagnosis Diagnosis:: Traumatic injury to the urethra or prostate; urinary retention; leukocytosis; altered mental status - Patient Disposition Admitted to:: Telemetry Spoke to:: Chase Munoz Admitting Medical Physician:: Chase Munoz Condition at Disposition:: Stable, Unchanged
[2018-10-23 02:06] LABS: HEMOGLOBIN 16.7 gm/dL (12-16); MEAN CELL VOLUME 94.6 fl (80-99); MEAN CORPUSCULAR HEMOGLOBIN 31.5 pg (27.0-31.0); MEAN CORPUSCULAR HGB CONC 33.4 pg (28.0-36.0); MEAN PLATELET VOLUME 8.1 fl; PLATELET COUNT 354 Th/cmm (150-400); RED BLOOD COUNT 5.29 Mil/cmm (3.80-5.80); RED CELL DISTRIBUTION WIDTH 14.4 % (11.5-20.0)
[2018-10-23 02:11] LABS: WHITE BLOOD COUNT 35.8 Th/cmm (4.8-10.8)
[2018-10-23] MEDS ORDERED: cefTRIAXone 1 GM in Sodium Chloride 0.9% 50 ML IV ONE (02:12)
[2018-10-23 02:14] LABS: INR 0.96 (0.5-1.4)
[2018-10-23 02:28] LABS: ANION GAP 15.3 (7.0-16.0); BUN - UREA NITROGEN 20 mg/dL (7-25); CALCIUM SERUM 9.9 mg/dL (8.6-10.3); CARBON DIOXIDE 20.9 mEq/L (21.0-31.0); CHLORIDE 100 mEq/L (98-107); CREATININE - SERUM 1.1 mg/dL (0.7-1.3); GFR AFRICAN-AMERICAN > 60.0 ml/min (>90); GFR NON AFRICAN-AMERICAN > 60.0 ml/min; GLUCOSE 152 mg/dL (70-105); POTASSIUM SERUM 3.2 mEq/L (3.5-5.1); SODIUM SERUM 133 mEq/L (136-145)
[2018-10-23 02:33] LABS: BAND NEUTROPHILE 8 % (0-10); LYMPHOCYTE 2 % (20-50); NEUTROPHILS 90 % (40-80); PLATELET ESTIMATE ADEQUATE (NORMAL)
--- NOTE | 2018-10-23 12:46 | Consultation ---
DATE OF CONSULTATION: 10/23/2018 UROLOGY CONSULT REASON FOR CONSULTATION: Seen for gross hematuria, urinary retention and injury to the urethra. HISTORY OF PRESENT ILLNESS: The patient is a 68-[facility]-old [facility] resident apparently bedbound, was seen in the Emergency Room here with bleeding from his penis after having pulled out a Mitchell catheter. Details of this are not available and call has been [facility] to the [facility]. Apparently, he has a history of BPH and therefore has a Mitchell catheter for an indefinite amount of time. In any case, after the admission, the bladder distended progressively up to the umbilicus. The patient was in a lot of pain and discomfort with rising WBC count and lactic acid. Urology consult was then requested. The patient is unable to provide any history about his urinary status and surgical interventions in the past. There is a mention of his BPH and UTIs in his chart. PAST MEDICAL HISTORY: Positive for: 1. Hypertension and hyperlipidemia. 2. Asthma and COPD. 3. Urinary tract infection, BPH and sepsis. 4. History of congestive heart failure. 5. History of malnutrition. 6. History of polyneuropathy. 7. History of myocardial infarction. PAST SURGICAL HISTORY: Unknown. FAMILY HISTORY: Unknown. REVIEW OF SYSTEMS: GASTROINTESTINAL: No nausea, vomiting or diarrhea, but he has fecal impaction noted after admission and was recommended disimpaction and an enema. UROLOGIC: As described earlier. MUSCULOSKELETAL: No joint pains or skin rashes noted. ENDOCRINE: No history of hypothyroidism or diabetes. NEUROLOGIC: No history of seizure or headaches. RESPIRATORY: No chest pain, coughing or shortness of breath. HEENT: No sore throat or runny nose. PREADMISSION MEDICATIONS: Include Tylenol, albuterol inhaler, fentanyl patch, nutritional supplements, aspirin, Lipitor, baclofen, Dulcolax, Valium, Colace, Cymbalta, Lovenox 40 mg subcu once a day, finasteride, folic acid, Lasix, gabapentin, Dilaudid p.r.n. basis, magnesium hydroxide, Robaxin, sennosides, Aldactone and Flomax. ALLERGIES: None. PHYSICAL EXAMINATION: GENERAL: On exam, he is awake, alert, but noncommunicative. He is moaning with pain and touching his abdomen and penis. He is oriented x 1 only. VITAL SIGNS: Temperature 97.2, heart rate 96, blood pressure 135/76. ABDOMEN: Bladder palpable up to the umbilicus and tender. No other masses are felt. No hernia. GENITALIA: Normal male. No scrotal masses. Penis is uncircumcised and the meatus is eroded for about three-quarter of an inch on the ventral aspect from chronic Mitchell catheterization, which indicates he has had it for a long long time. RECTAL: Deferred at this time. EXTREMITIES: Some skin pigmentations, but no edema or lymphadenopathy. HEART: Sounds normal sinus rhythm, no murmur. RESPIRATIONS: Normal at 18. No rales or rhonchi. HEAD AND NECK: Normocephalic. Trachea central. Pupils equal and reactive. No jaundice. Thyroid and lymph nodes not palpable. Carotid bruit absent. LABORATORY AND DIAGNOSTIC DATA: White count 35,800, hemoglobin 16.7, platelets 354, neutrophils 90 indicative of a left shift. PT/INR 0.9, PTT is normal. Sodium 133, potassium 3.2, CO2 20.9, BUN 20, creatinine 1.1, lactic acid 3.7, glucose 140 and also 152. IMPRESSION: 1. Acute urinary retention from removal of Mitchell either forcibly or on a scheduled basis with inability to reintroduce it. There is blood at the meatus indicative of some trauma as well. History of benign prostatic hypertrophy and urinary tract infection in the past. Recommend attempts to insert the Mitchell at the bedside and if not possible suprapubic puncture. 2. History of congestive heart failure and myocardial infarct. 3. History of chronic obstructive pulmonary disease and asthma. 4. Bedbound status with some confusion or altered level of consciousness. 5. History of hypertension and hyperlipidemia. 6. History of polyneuropathy and malnutrition. 7. History of benign prostatic hypertrophy. The patient was placed in the supine position and a 16 Mitchell was passed without too much resistance and more than 800 was drained. The terminal part was bloody from rapid decompression. The initial part was quite clear and concentrated yellowish urine. Recommend: 1. Bladder irrigations to suction out clots and blood once now and then as needed to keep the catheter open. 2. Restrain the patient so that he does not pull the catheter and injure himself again. JOB# [id number]
[2018-10-23] MEDS: Potassium Chloride 10 MEQ in D5-0.9%NS 1,000 ML IV SCH (14:01)
[2018-10-23 15:25] VITALS: BP 135/76
[2018-10-23 17:24] LABS: URINE SOURCE FOLEY PORT
[2018-10-23 17:27] LABS: URINE BILIRUBIN SMALL (NEGATIVE); URINE BLOOD LARGE (NEGATIVE); URINE GLUCOSE (UA) NEGATIVE (NEGATIVE); URINE KETONE TRACE mg/dL (NEGATIVE); URINE LEUKOCYTE ESTERASE MODERATE (NEGATIVE); URINE MICROSCOPIC INDICATED? YES; URINE NITRATE NEGATIVE (NEGATIVE); URINE PROTEIN 100 mg/dL (NEGATIVE); URINE UROBILINOGEN 0.2 E.U./dL (0.2 - 1.0)
[2018-10-23 17:32] LABS: URINE COLOR YELLOW
[2018-10-23 17:35] LABS: URINE CLARITY CLOUDY (CLEAR)
[2018-10-23 18:05] LABS: URINE BACTERIA 2+ /hpf (NONE SEEN); URINE EPITHELIAL CELLS MODERATE /lpf (FEW)
[2018-10-23] MEDS ORDERED: Albuterol/Ipratropium Neb 3 ML AERS HHN PRN (23:26)
[2018-10-23] MEDS ORDERED: Magnesium Hydroxide (MOM) 30 mL UDC PO PRN (23:26)
[2018-10-24] MEDS: Morphine Sulfate 4 mg/mL 1mL Syr IVP PRN ×5 (02:01→23:31)
[2018-10-24] MEDS: Potassium Chloride 10 MEQ in D5-0.9%NS 1,000 ML IV SCH ×2 (02:16→13:20)
[2018-10-24] MEDS: Atorvastatin Calcium 10 MG TAB PO SCH (08:56)
[2018-10-24] MEDS ORDERED: Enoxaparin 40 mg/0.4 mL 0.4mL Syr SUBQ SCH (09:00)
[2018-10-24] MEDS ORDERED: Aspirin 81mg Chewable Tab PO SCH (09:00)
[2018-10-24] MEDS ORDERED: Non-Formulary Item 1 EA (Amino Acids/Protein Hydrolys [Pro-Stat Sugar Free Liquid] 30 ML) PO SCH (09:00)
[2018-10-24 19:19] LABS: HEMATOCRIT 39.4 % (41.0-60); HEMOGLOBIN 13.3 gm/dL (12-16); MEAN CELL VOLUME 95.9 fl (80-99); MEAN CORPUSCULAR HEMOGLOBIN 32.3 pg (27.0-31.0); MEAN CORPUSCULAR HGB CONC 33.7 pg (28.0-36.0); MEAN PLATELET VOLUME 8.1 fl; PLATELET COUNT 216 Th/cmm (150-400); RED BLOOD COUNT 4.11 Mil/cmm (3.80-5.80); RED CELL DISTRIBUTION WIDTH 14.6 % (11.5-20.0); WHITE BLOOD COUNT 12.5 Th/cmm (4.8-10.8)
[2018-10-24 19:35] LABS: ANION GAP 11.3 (7.0-16.0); BUN - UREA NITROGEN 25 mg/dL (7-25); CARBON DIOXIDE 26.2 mEq/L (21.0-31.0); CHLORIDE 104 mEq/L (98-107); CREATININE - SERUM 1.1 mg/dL (0.7-1.3); GFR AFRICAN-AMERICAN > 60.0 ml/min (>90); GFR NON AFRICAN-AMERICAN > 60.0 ml/min; GLUCOSE 124 mg/dL (70-105); POTASSIUM SERUM 3.5 mEq/L (3.5-5.1); SODIUM SERUM 138 mEq/L (136-145)
[2018-10-24 20:23] LABS: BAND NEUTROPHILE 2 % (0-10); BASOPHIL 0 % (0-3); EOSINOPHIL 0 % (0-5); LYMPHOCYTE 12 % (20-50); MONOCYTE 2 % (2-10); NEUTROPHILS 84 % (40-80)
--- NOTE | 2018-10-24 23:21 | Progress Notes ---
DATE: 10/24/2018 UROLOGY PROGRESS NOTE SUBJECTIVE: The patient is more alert and awake and more oriented today than yesterday. He has not had a fever and the urine has cleared up with yellow color. He does complain of pain around the pelvic area, but has not had any other problems. PHYSICAL EXAMINATION: VITAL SIGNS: His temperature is 97.2, heart rate 96 and blood pressure 135/76. ABDOMEN: Soft, nondistended, nontender. Mitchell catheter, no blood. EXTREMITIES: No edema. CARDIOVASCULAR: Heart sounds, sinus rhythm. LABORATORY DATA: None were done today. Therefore, I ordered a CBC and BMP. He had a markedly elevated white count yesterday. His blood cultures are negative so far. Apparently, Dr. Munoz his primary physician has given the clearance for surgery, namely cystoscopy and TURP, which may be able to get him catheter free and prevent further problems of trauma and infection. I have asked Dr. Munoz to hold anticoagulation if we are going to proceed with the operation. IMPRESSION: 1. Urinary retention with chronic Mitchell, now replaced yesterday. 2. Mitchell related trauma and hematuria, improving. 3. History of benign prostatic hypertrophy. 4. History of chronic obstructive pulmonary disease. 5. Congestive heart failure. 6. Hypertension. 7. Chronic conditions, relatively stable. 8. Lastly, sepsis, urinary tract infection and leukocytosis, on antibiotics. Urine culture is not back as yet. Hopefully, improving with the change in catheter and drainage of urine and the antibiotics. We have to get consent from the patient or his family and nursing staff is working to find out who is able to do this. The patient is oriented x 3 today, but I am not sure if he is legally about to give the consent. We are trying to find out also from his snf if there is a legal guardian or conservator, etc. JOB# [id number]
--- NOTE | 2018-10-25 00:28 | Internal Medicine Prog Note ---
Internal Medicine Subjective - Subjective Service Date: 10/24/18 Patient seen and examined:: with staff Patient is:: awake, verbal, interactive, in bed Patient Complaints of:: pain with urination, unable to sleep Per staff patient has:: no adverse event Internal Medicine Objective - Results Result Diagrams: 10/24/18 19:14 10/24/18 19:14 Recent Labs: Laboratory Last Values WBC 12.5 Th/cmm (4.8-10.8) H 10/24/18 19:14 RBC 4.11 Mil/cmm (3.80-5.80) 10/24/18 19:14 Hgb 13.3 gm/dL (12-16) 10/24/18 19:14 Hct 39.4 % (41.0-60) L 10/24/18 19:14 MCV 95.9 fl (80-99) 10/24/18 19:14 MCH 32.3 pg (27.0-31.0) H 10/24/18 19:14 MCHC Differential 33.7 pg (28.0-36.0) 10/24/18 19:14 RDW 14.6 % (11.5-20.0) 10/24/18 19:14 Plt Count 216 Th/cmm (150-400) 10/24/18 19:14 MPV 8.1 fl 10/24/18 19:14 Add Manual Diff YES 10/24/18 19:14 Neutrophils % [employer] 10/24/18 19:14 Band Neutrophils % 2 % (0-10) 10/24/18 19:14 Lymphocytes % [employer] 10/24/18 19:14 Monocytes % [employer] 10/24/18 19:14 Eosinophils % [employer] 10/24/18 19:14 Basophils % [employer] 10/24/18 19:14 Neutrophils (Manual) 84 % (40-80) H 10/24/18 19:14 Lymphocytes 12 % (20-50) L 10/24/18 19:14 Monocytes 2 % (2-10) 10/24/18 19:14 Eosinophils 0 % (0-5) 10/24/18 19:14 Basophils 0 % (0-3) 10/24/18 19:14 Platelet Estimate ADEQUATE (NORMAL) 10/23/18 01:49 PT 10.0 SECONDS (9.5-11.5) 10/23/18 01:49 INR 0.96 (0.5-1.4) 10/23/18 01:49 PTT (Actin FS) 27.6 SECONDS (26.0-38.0) 10/23/18 01:49 Sodium 138 mEq/L (136-145) 10/24/18 19:14 Potassium 3.5 mEq/L (3.5-5.1) 10/24/18 19:14 Chloride 104 mEq/L (98-107) 10/24/18 19:14 Carbon Dioxide 26.2 mEq/L (21.0-31.0) 10/24/18 19:14 Anion Gap 11.3 (7.0-16.0) 10/24/18 19:14 BUN 25 mg/dL (7-25) 10/24/18 19:14 Creatinine 1.1 mg/dL (0.7-1.3) 10/24/18 19:14 Est GFR ( Amer) > 60.0 ml/min (>90) 10/24/18 19:14 Est GFR (Non-Af Amer) > 60.0 ml/min 10/24/18 19:14 BUN/Creatinine Ratio 22.7 10/24/18 19:14 Glucose 124 mg/dL (70-105) H 10/24/18 19:14 POC Glucose 140 MG/DL (70 - 105) H 10/23/18 09:06 Whole Bld Lactic Acid 1.90 mmol/L (0.60-1.99) 10/23/18 17:55 Calcium 9.0 mg/dL (8.6-10.3) 10/24/18 19:14 Urine Source [place] 10/23/18 17:00 Urine Color YELLOW 10/23/18 17:00 Urine Clarity CLOUDY (CLEAR) 10/23/18 17:00 Urine pH 6.0 (4.6 - 8.0) 10/23/18 17:00 Ur Specific [place] 1.020 (1.005-1.030) 10/23/18 17:00 Urine Protein 100 mg/dL (NEGATIVE) H 10/23/18 17:00 Urine Glucose (UA) NEGATIVE mg/dL (NEGATIVE) 10/23/18 17:00 Urine Ketones TRACE mg/dL (NEGATIVE) 10/23/18 17:00 Urine Blood LARGE (NEGATIVE) H 10/23/18 17:00 Urine Nitrate NEGATIVE (NEGATIVE) 10/23/18 17:00 Urine Bilirubin SMALL (NEGATIVE) H 10/23/18 17:00 Urine Urobilinogen 0.2 E.U./dL (0.2 - 1.0) 10/23/18 17:00 Ur Leukocyte Esterase MODERATE (NEGATIVE) H 10/23/18 17:00 Urine RBC 10-25 /hpf (0-5) H 10/23/18 17:00 Urine WBC 6-10 /hpf (0-5) 10/23/18 17:00 Ur Epithelial Cells MODERATE /lpf (FEW) 10/23/18 17:00 Urine Bacteria 2+ /hpf (NONE SEEN) H 10/23/18 17:00 - Physical Exam Vitals and I&O: Vital Signs Temp 98.2 F 10/24/18 23:47 Pulse 78 10/24/18 23:47 Resp 18 10/24/18 23:47 BP 125/62 10/24/18 23:47 Pulse Ox 96 10/24/18 23:47 Intake & Output 10/24/18 10/24/18 10/25/18 06:59 18:59 06:59 Intake Total 2065 1796 Output Total 1900 1005 Balance 165 791 Weight (lbs) 90.718 kg 90.718 kg Intake: Intake, IV Amount 1105 1096 Piperacillin Sodium/ 100 100 Tazobact 3.375 gm In Sodium Chloride 0.9% 50 ml @ 100 mls/hr IV Q6H [facility] Rx#:[id number] Potassium Chloride 10 meq 1005 996 In D5-0.9%Ns 1,000 ml @ 90 mls/hr IV .[id number] [facility] Rx#:[id number] Oral 960 700 Output: Urine 1900 1005 Other: # Bowel Movements 1 Stool Characteristics Brown Weight Source Bedscale Bedscale Active Medications: Current Medications Acetaminophen (Tylenol) 650 mg PO Q4H PRN PRN Reason: Fever > 101 Stop: 12/22/18 12:56 Last Admin: 10/23/18 20:22 Dose: 650 mg Acetaminophen (Tylenol) 325 mg PO Q6HR PRN PRN Reason: Mild Pain or Fever >101 Stop: 12/22/18 23:25 Last Admin: 10/24/18 04:23 Dose: 325 mg Albuterol/Ipratropium (Duoneb Neb) 3 ml HHN Q6HRT PRN PRN Reason: Shortness of Breath Stop: 12/22/18 23:25 Ascorbic Acid (Vitamin C) 250 mg PO DAILY [facility] Stop: 12/23/18 08:59 Last Admin: 10/24/18 08:55 Dose: 250 mg Atorvastatin Calcium (Lipitor) 20 mg PO DAILY [facility] Stop: 12/23/18 08:59 Last Admin: 10/24/18 08:56 Dose: 20 mg Baclofen (Lioresal) 10 mg PO QID [facility] Stop: 12/22/18 20:59 Last Admin: 10/24/18 20:19 Dose: 10 mg Bisacodyl (Dulcolax 10 Mg Supp) 10 mg RC DAILY PRN PRN Reason: Constipation Stop: 12/22/18 23:25 Diazepam (Valium) 5 mg PO BID [facility]; Protocol Stop: 12/23/18 08:59 Docusate Sodium (Colace) 100 mg PO DAILY [facility] Stop: 12/23/18 08:59 Last Admin: 10/24/18 08:56 Dose: 100 mg Duloxetine HCl (Cymbalta) 30 mg PO DAILY [facility]; Protocol Stop: 12/23/18 08:59 Finasteride (Proscar) 5 mg PO DAILY [facility]; Protocol Stop: 12/23/18 08:59 Last Admin: 10/24/18 08:55 Dose: 5 mg Folic Acid (Folate) 1 mg PO DAILY [facility] Stop: 12/23/18 08:59 Last Admin: 10/24/18 08:55 Dose: 1 mg Furosemide (Lasix) 20 mg PO DAILY [facility] Stop: 12/23/18 08:59 Last Admin: 10/24/18 08:55 Dose: 20 mg Gabapentin (Neurontin) 1,200 mg PO TID [facility] Stop: 12/23/18 08:59 Last Admin: 10/24/18 20:19 Dose: 1,200 mg Potassium Chloride 10 meq/ (Dextrose/Sodium Chloride) 1,005 mls @ 90 mls/hr IV .[id number] [facility] Stop: 12/22/18 12:59 Last Admin: 10/24/18 13:20 Dose: 90 mls/hr Piperacillin Sod/Tazobactam (Sod 3.375 gm/ Sodium Chloride) 50 mls @ 100 mls/ hr IV Q6H [facility] Stop: 12/22/18 12:59 Last Admin: 10/24/18 20:25 Dose: 100 mls/hr Lorazepam (Ativan) 1 mg IV Q4H PRN; Protocol PRN Reason: Anxiety Stop: 12/22/18 22:24 Magnesium Hydroxide (Milk Of Magnesia) 30 ml PO HS PRN PRN Reason: Constipation Stop: 12/22/18 23:25 Methocarbamol (Robaxin) 500 mg PO DAILY [facility] Stop: 12/23/18 08:59 Last Admin: 10/24/18 08:56 Dose: 500 mg Miscellaneous (Hydromorphone Hcl [Dilaudid]) 8 mg PO Q4H PRN PRN Reason: Pain (Moderate) Morphine Sulfate (Morphine) 3 mg IVP Q3H PRN PRN Reason: MODERATE TO SEVERE PAIN Stop: 12/22/18 22:20 Last Admin: 10/24/18 23:31 Dose: 3 mg Senna (Senna) 8.6 mg PO HS [facility] Stop: 12/23/18 20:59 Last Admin: 10/24/18 20:19 Dose: 8.6 mg Spironolactone (Aldactone) 25 mg PO DAILY [facility] Stop: 12/23/18 08:59 Last Admin: 10/24/18 08:56 Dose: 25 mg Tamsulosin HCl (Flomax) 0.4 mg PO DAILY [facility] Stop: 12/23/18 08:59 Last Admin: 10/24/18 08:57 Dose: 0.4 mg General: weak, congested HEENT: NC/AT, PERRLA, EOMI, anicteric sclerae, throat clear, thyromegaly Neck: Supple, No JVD, No thyromegaly Lungs: CTAB, congested Cardiovascular: RRR, Normal S1, Normal S2 Abdomen: soft, tender Extremities: clear, edema, pedal pulses Neurological: no change Internal Medicine Assmt/Plan - Assessment Assessment: UTI: c&s pending; adjust abx accordingly. Hematuria & urinary retention: s/p Montero replacement. Early sepsis: resolving. Leukocytosis: much better. Chronic pain syndrome: adjusting pain meds as needed. Insomnia: multifactorial. H/o CHF and CAD: stable.
--- NOTE | 2018-10-25 01:13 | History & Physical ---
ADMIT DATE: 10/23/2018 CHIEF COMPLAINT: Hematuria and difficulty urinating. HISTORY OF PRESENT ILLNESS: The patient is a 68-year-old male admitted from the Emergency Room to telemetry floor of [facility] due to multiple complicated medical conditions. Apparently, the patient accidently pulled out his Mitchell with bleeding in the senior care and significant urinary retention. Consultation with the urologist was requested even when the patient in the Emergency Room. Dr. Chu replaced the Mitchell. The patient's UA revealed moderate leukocyte esterase, 2+ bacteria, 25 wbc. The patient's white count is elevated to 35,800. His lactic acid level was 3.01, increased to 3.75, and decreased to 1.0. The patient's sodium 133, potassium 3.2. The patient complains of severe pain upon urination and also complained of leg pain. PAST MEDICAL HISTORY: COPD, urinary tract infection, questionable congestive heart failure, failure to thrive, polyneuropathy with chronic pain syndrome, history of coronary artery disease, hypertension, hyperlipidemia. PAST SURGICAL HISTORY: Denies significant past surgical history. MEDICATIONS: See medication reconciliation list. ALLERGIES: No known drug allergy. FAMILY HISTORY: Noncontributory. SOCIAL HISTORY: The patient smoked before, quit years ago. No history of alcohol or IV drug abuse. REVIEW OF SYSTEMS: As per HPI. PHYSICAL EXAMINATION: GENERAL: Well-developed, well-nourished male, in no acute distress. SKIN: There is some excoriation. VITAL SIGNS: Basically stable. HEENT: Normocephalic, atraumatic. Pupils equal, round, react to light and accommodation. CHEST: Symmetrical. LUNGS: A few wheezing appreciated. CARDIAC: Normal sinus rhythm. S1, S2. ABDOMEN: Benign. There is tenderness in the suprapubic area. EXTREMITIES: No clubbing or cyanosis. There is trace edema bilaterally, 2+ pitting. NEUROLOGICAL: Unremarkable. LABORATORY DATA: Reviewed as seen from the computer. ASSESSMENT AND PLAN: 1. Early sepsis: Blood culture ordered. Empiric antibiotic started, which will be adjusted accordingly. We will repeat lactic acid level. 2. Marked leukocytosis: Blood culture and urine culture ordered. We adjust antibiotics accordingly. 3. Hypokalemia: Supplemented. 4. Urinary tract infection: Urine culture and blood culture ordered. Empiric antibiotics started, which will adjust accordingly. 5. Hematuria with urinary retention: The patient accidentally pulled out Mitchell, which was reinserted by Dr. Chu. JOB# [id number]
[2018-10-25] MEDS: Potassium Chloride 10 MEQ in D5-0.9%NS 1,000 ML IV SCH ×2 (01:34→16:07)
[2018-10-25] MEDS: Morphine Sulfate 4 mg/mL 1mL Syr IVP PRN ×7 (04:37→23:30)
[2018-10-25 06:56] LABS: % BASOPHILS 0.2 % (0.0-2.0); % EOSINOPHILS 0.8 % (0.0-5.0); % LYMPHOCYTES 12.9 % (20.0-50.0); % MONOCYTES 4.9 % (2.0-10.0); % NEUTROPHILS 81.2 % (40.0-80.0); EOSINOPHILE ABSOLUTE 0.1 Th/cmm (0.1-0.4); HEMATOCRIT 36.5 % (41.0-60); HEMOGLOBIN 12.3 gm/dL (12-16); LYMPHOCYTE ABSOLUTE 1.1 Th/cmm (1.5-3.0); MEAN CELL VOLUME 95.1 fl (80-99); MEAN CORPUSCULAR HEMOGLOBIN 32.2 pg (27.0-31.0); MEAN CORPUSCULAR HGB CONC 33.8 pg (28.0-36.0); MEAN PLATELET VOLUME 8.2 fl; MONOCYTE ABSOLUTE 0.4 Th/cmm (0.3-1.0); NEUTROPHILE ABSOLUTE 7.1 Th/cmm (1.8-8.0); PLATELET COUNT 180 Th/cmm (150-400); RED BLOOD COUNT 3.83 Mil/cmm (3.80-5.80); RED CELL DISTRIBUTION WIDTH 14.5 % (11.5-20.0); WHITE BLOOD COUNT 8.7 Th/cmm (4.8-10.8)
[2018-10-25 07:17] LABS: ANION GAP 11.1 (7.0-16.0); BUN - UREA NITROGEN 18 mg/dL (7-25); CARBON DIOXIDE 25.3 mEq/L (21.0-31.0); CHLORIDE 107 mEq/L (98-107); CREATININE - SERUM 0.9 mg/dL (0.7-1.3); GFR AFRICAN-AMERICAN > 60.0 ml/min (>90); GFR NON AFRICAN-AMERICAN > 60.0 ml/min; GLUCOSE 128 mg/dL (70-105); POTASSIUM SERUM 3.4 mEq/L (3.5-5.1); SODIUM SERUM 140 mEq/L (136-145)
[2018-10-25] MEDS: Atorvastatin Calcium 10 MG TAB PO SCH (09:41)
[2018-10-25] MEDS: Nicotine 7 mg/24 hr Tdm TD SCH (20:10)
--- NOTE | 2018-10-26 01:53 | Progress Notes ---
DATE: SUBJECTIVE: The patient has intermittent problems with pain and bleeding around the Mitchell, but overall is doing well after it was replaced. His mental status has improved dramatically and he is now quite communicative and seems to be well informed. He indicated that he has had multiple sclerosis for the last several years and a Mitchell catheter for the last 3-4 months for urinary problems, one of them being very short penis, which does not allow adequate urination into a urinal. I am not sure if this is accurate since he probably has a neurogenic bladder and some incontinence and must have some retention. PHYSICAL EXAMINATION: VITAL SIGNS: His temperature is 98.1, heart rate 74, and blood pressure 139/62. ABDOMEN: Obese, but soft and nontender. Bladder is nondistended and genitalia unremarkable. There is some blood around the meatus and the Mitchell catheter is draining clear yellow urine. RECTAL: Reveals a small benign, nontender prostate. Sphincter tone is reduced. LABORATORY DATA: White count is down to 8.7 from a high of 35.8 and hemoglobin is stable at 12.3. Sodium 140, potassium 3.4, BUN 18, creatinine 0.9, lactic acid yesterday, came down to 1.9 from a high of 3.7. Urinalysis showed evidence of blood and infection. Urine culture showed a preliminary growth poorly defined, but a final result pending. IMPRESSION: 1. Neurogenic bladder from multiple sclerosis. I do not think we need to do a cystoscopy or a TURP as his prostate is very small and the outcome may not be significantly better to make him catheter free and independent. The patient agrees with this plan and therefore, we can continue to do catheter care and periodic or 3-4 weekly changes of the catheter. 2. Multiple sclerosis, which was not revealed to me initially and now has become obvious from his left-sided hemiplegia. He claims both the arm and legs are paralyzed and he is unable to move them. 3. Urinary tract infection. Culture is pending. 4. Hematuria from Mitchell trauma, now resolved. 5. History of congestive heart failure, stable. 6. History of chronic obstructive pulmonary disease. 7. Hyperlipidemia. 8. ____. No significant change. 9. Sepsis, on antibiotics. [facility]# [id number]
[2018-10-26] MEDS: Morphine Sulfate 4 mg/mL 1mL Syr IVP PRN ×5 (02:48→20:35)
[2018-10-26] MEDS: Potassium Chloride 10 MEQ in D5-0.9%NS 1,000 ML IV SCH (06:17)
--- NOTE | 2018-10-26 08:46 | Diagnostic Imaging Report ---
CHEST X-RAY: AP view INDICATION: COPD, pneumonia COMPARISON: 10/02/2018 FINDINGS: Chronic lung changes are noted with no focal consolidation or effusions. Left lower lung zone subsegmental atelectasis versus scar is noted. Heart size is normal. IMPRESSION: Chronic interstitial lung changes with probable COPD. No focal consolidation identified Left basal subsegmental atelectasis versus scarring.
[2018-10-26] MEDS ORDERED: Nicotine 7 mg/24 hr Tdm TD SCH (09:00)
[2018-10-26] MEDS: Atorvastatin Calcium 10 MG TAB PO SCH (09:42)
[2018-10-26] MEDS: Nicotine 7 mg/24 hr Tdm TD SCH (09:42)
[2018-10-26] MEDS ORDERED: Probiotic Screen MC PRN (11:40)
[2018-10-26] MEDS: Lactobacillus Rhamnosus GG 15 Billion CFU CAP.SPRINK PO SCH (16:05)
--- NOTE | 2018-10-26 21:57 | Internal Medicine Prog Note ---
Internal Medicine Subjective - Subjective Service Date: 10/26/18 Patient seen and examined:: with staff Patient is:: awake, verbal, interactive, in bed Patient Complaints of:: pain with urination, unable to sleep Per staff patient has:: no adverse event Internal Medicine Objective - Results Result Diagrams: 10/25/18 06:09 10/25/18 06:09 Recent Labs: Laboratory Last Values WBC 8.7 Th/cmm (4.8-10.8) 10/25/18 06:09 RBC 3.83 Mil/cmm (3.80-5.80) 10/25/18 06:09 Hgb 12.3 gm/dL (12-16) 10/25/18 06:09 Hct 36.5 % (41.0-60) L 10/25/18 06:09 MCV 95.1 fl (80-99) 10/25/18 06:09 MCH 32.2 pg (27.0-31.0) H 10/25/18 06:09 MCHC Differential 33.8 pg (28.0-36.0) 10/25/18 06:09 RDW 14.5 % (11.5-20.0) 10/25/18 06:09 Plt Count 180 Th/cmm (150-400) 10/25/18 06:09 MPV 8.2 fl 10/25/18 06:09 Add Manual Diff YES 10/24/18 19:14 Neutrophils % 81.2 % (40.0-80.0) H 10/25/18 06:09 Band Neutrophils % 2 % (0-10) 10/24/18 19:14 Lymphocytes % 12.9 % (20.0-50.0) L 10/25/18 06:09 Monocytes % 4.9 % (2.0-10.0) 10/25/18 06:09 Eosinophils % 0.8 % (0.0-5.0) 10/25/18 06:09 Basophils % 0.2 % (0.0-2.0) 10/25/18 06:09 Neutrophils (Manual) 84 % (40-80) H 10/24/18 19:14 Lymphocytes 12 % (20-50) L 10/24/18 19:14 Monocytes 2 % (2-10) 10/24/18 19:14 Eosinophils 0 % (0-5) 10/24/18 19:14 Basophils 0 % (0-3) 10/24/18 19:14 Platelet Estimate ADEQUATE (NORMAL) 10/23/18 01:49 PT 10.0 SECONDS (9.5-11.5) 10/23/18 01:49 INR 0.96 (0.5-1.4) 10/23/18 01:49 PTT (Actin FS) 27.6 SECONDS (26.0-38.0) 10/23/18 01:49 Sodium 140 mEq/L (136-145) 10/25/18 06:09 Potassium 3.4 mEq/L (3.5-5.1) L 10/25/18 06:09 Chloride 107 mEq/L (98-107) 10/25/18 06:09 Carbon Dioxide 25.3 mEq/L (21.0-31.0) 10/25/18 06:09 Anion Gap 11.1 (7.0-16.0) 10/25/18 06:09 BUN 18 mg/dL (7-25) 10/25/18 06:09 Creatinine 0.9 mg/dL (0.7-1.3) 10/25/18 06:09 Est GFR ( Amer) > 60.0 ml/min (>90) 10/25/18 06:09 Est GFR (Non-Af Amer) > 60.0 ml/min 10/25/18 06:09 BUN/Creatinine Ratio 20.0 10/25/18 06:09 Glucose 128 mg/dL (70-105) H 10/25/18 06:09 POC Glucose 140 MG/DL (70 - 105) H 10/23/18 09:06 Whole Bld Lactic Acid 1.90 mmol/L (0.60-1.99) 10/23/18 17:55 Calcium 9.0 mg/dL (8.6-10.3) 10/25/18 06:09 B-Natriuretic Peptide 42.9 pg/mL (5.0-100.0) 10/25/18 06:09 Urine Source [place] 10/23/18 17:00 Urine Color YELLOW 10/23/18 17:00 Urine Clarity CLOUDY (CLEAR) 10/23/18 17:00 Urine pH 6.0 (4.6 - 8.0) 10/23/18 17:00 Ur Specific [place] 1.020 (1.005-1.030) 10/23/18 17:00 Urine Protein 100 mg/dL (NEGATIVE) H 10/23/18 17:00 Urine Glucose (UA) NEGATIVE mg/dL (NEGATIVE) 10/23/18 17:00 Urine Ketones TRACE mg/dL (NEGATIVE) 10/23/18 17:00 Urine Blood LARGE (NEGATIVE) H 10/23/18 17:00 Urine Nitrate NEGATIVE (NEGATIVE) 10/23/18 17:00 Urine Bilirubin SMALL (NEGATIVE) H 10/23/18 17:00 Urine Urobilinogen 0.2 E.U./dL (0.2 - 1.0) 10/23/18 17:00 Ur Leukocyte Esterase MODERATE (NEGATIVE) H 10/23/18 17:00 Urine RBC 10-25 /hpf (0-5) H 10/23/18 17:00 Urine WBC 6-10 /hpf (0-5) 10/23/18 17:00 Ur Epithelial Cells MODERATE /lpf (FEW) 10/23/18 17:00 Urine Bacteria 2+ /hpf (NONE SEEN) H 10/23/18 17:00 - Physical Exam Vitals and I&O: Vital Signs Temp 96.7 F 10/26/18 20:00 Pulse 64 10/26/18 20:00 Resp 19 10/26/18 20:00 BP 132/65 10/26/18 20:00 Pulse Ox 99 10/26/18 20:00 Intake & Output 10/26/18 10/26/18 10/27/18 06:59 18:59 06:59 Intake Total 1105 550 Output Total 1000 3100 Balance 105 -2550 Weight (lbs) 90.718 kg 90.718 kg Intake: Intake, IV Amount 1105 50 Piperacillin Sodium/ 100 50 Tazobact 3.375 gm In Sodium Chloride 0.9% 50 ml @ 100 mls/hr IV Q6H [facility] Rx#:[id number] Potassium Chloride 10 meq 1005 In D5-0.9%Ns 1,000 ml @ 90 mls/hr IV .[id number] [facility] Rx#:[id number] Oral 500 Output: Urine 1000 3100 Other: # Bowel Movements 2 Stool Characteristics Soft Formed Formed Brown Weight Source Bedscale Bedscale Active Medications: Current Medications Acetaminophen (Tylenol) 650 mg PO Q4H PRN PRN Reason: Fever > 101 Stop: 12/22/18 12:56 Last Admin: 10/23/18 20:22 Dose: 650 mg Acetaminophen (Tylenol) 325 mg PO Q6HR PRN PRN Reason: Mild Pain or Fever >101 Stop: 12/22/18 23:25 Last Admin: 10/24/18 04:23 Dose: 325 mg Albuterol/Ipratropium (Duoneb Neb) 3 ml HHN Q6HRT PRN PRN Reason: Shortness of Breath Stop: 12/22/18 23:25 Ascorbic Acid (Vitamin C) 250 mg PO DAILY [facility] Stop: 12/23/18 08:59 Last Admin: 10/26/18 09:46 Dose: 250 mg Atorvastatin Calcium (Lipitor) 20 mg PO DAILY [facility] Stop: 12/23/18 08:59 Last Admin: 10/26/18 09:42 Dose: 20 mg Baclofen (Lioresal) 10 mg PO QID [facility] Stop: 12/22/18 20:59 Last Admin: 10/26/18 17:16 Dose: 10 mg Bisacodyl (Dulcolax 10 Mg Supp) 10 mg RC DAILY PRN PRN Reason: Constipation Stop: 12/22/18 23:25 Diazepam (Valium) 5 mg PO BID [facility]; Protocol Stop: 12/24/18 08:59 Last Admin: 10/26/18 17:16 Dose: 5 mg Docusate Sodium (Colace) 100 mg PO DAILY [facility] Stop: 12/23/18 08:59 Last Admin: 10/26/18 09:45 Dose: 100 mg Duloxetine HCl (Cymbalta) 30 mg PO DAILY [facility]; Protocol Stop: 12/24/18 08:59 Last Admin: 10/26/18 09:45 Dose: 30 mg Finasteride (Proscar) 5 mg PO DAILY [facility]; Protocol Stop: 12/23/18 08:59 Last Admin: 10/26/18 09:43 Dose: 5 mg Folic Acid (Folate) 1 mg PO DAILY [facility] Stop: 12/23/18 08:59 Last Admin: 10/26/18 09:46 Dose: 1 mg Furosemide (Lasix) 20 mg PO DAILY [facility] Stop: 12/23/18 08:59 Last Admin: 10/26/18 09:46 Dose: 20 mg Gabapentin (Neurontin) 1,200 mg PO TID [facility] Stop: 12/23/18 08:59 Last Admin: 10/26/18 12:59 Dose: 1,200 mg Hydromorphone HCl (Dilaudid) 8 mg PO Q4H PRN PRN Reason: Pain (Severe) Last Admin: 10/25/18 22:08 Dose: 8 mg Potassium Chloride 10 meq/ (Dextrose/Sodium Chloride) 1,005 mls @ 90 mls/hr IV .[id number] [facility] Stop: 12/22/18 12:59 Last Admin: 10/26/18 06:17 Dose: 90 mls/hr Piperacillin Sod/Tazobactam (Sod 3.375 gm/ Sodium Chloride) 50 mls @ 100 mls/ hr IV Q6H [facility] Stop: 12/22/18 12:59 Last Admin: 10/26/18 20:30 Dose: 100 mls/hr Lactobacillus Rhamnosus (Culturelle 15b) 1 each PO DAILY [facility] Stop: 12/25/18 13:59 Last Admin: 10/26/18 16:05 Dose: 1 each Lorazepam (Ativan) 1 mg IV Q4H PRN; Protocol PRN Reason: Anxiety Stop: 12/22/18 22:24 Last Admin: 10/25/18 01:23 Dose: 1 mg Magnesium Hydroxide (Milk Of Magnesia) 30 ml PO HS PRN PRN Reason: Constipation Stop: 12/22/18 23:25 Last Admin: 10/25/18 22:08 Dose: 30 ml Methocarbamol (Robaxin) 500 mg PO DAILY [facility] Stop: 12/23/18 08:59 Last Admin: 10/26/18 09:43 Dose: 500 mg Miscellaneous (Probiotic Screen) 1 ea MC PRN PRN PRN Reason: PROTOCOL Stop: 12/25/18 11:39 Morphine Sulfate (Morphine) 3 mg IVP Q3H PRN PRN Reason: MODERATE TO SEVERE PAIN Stop: 12/22/18 22:20 Last Admin: 10/26/18 15:56 Dose: 3 mg Nicotine (Nicotine Transdermal System) 7 mg TD DAILY [facility] Stop: 12/24/18 19:59 Last Admin: 10/26/18 09:42 Dose: 7 mg Senna (Senna) 8.6 mg PO HS [facility] Stop: 12/23/18 20:59 Last Admin: 12/09/18 20:11 Dose: 8.6 mg Spironolactone (Aldactone) 25 mg PO DAILY [facility] Stop: 12/23/18 08:59 Last Admin: 10/26/18 09:41 Dose: 25 mg Tamsulosin HCl (Flomax) 0.4 mg PO DAILY [facility] Stop: 12/23/18 08:59 Last Admin: 10/26/18 09:54 Dose: 0.4 mg General: weak, congested HEENT: NC/AT, PERRLA, EOMI, anicteric sclerae, throat clear, thyromegaly Neck: Supple, No JVD, No thyromegaly Lungs: CTAB, congested Cardiovascular: RRR, Normal S1, Normal S2 Abdomen: soft, tender Extremities: clear, edema, pedal pulses Neurological: no change Internal Medicine Assmt/Plan - Assessment Assessment: Neurogenic bladder from MS: the main culprit of the pt's urinary retention. Chronic pain syndrome exacerbation: partially due to MS? pain medication dose increased. UTI: IVPB ABX. Hypokalemia: supplement. COPD: RT protocol. Hematuria & urinary retention: s/p Montero replacement. Early sepsis: resolving? Leukocytosis: much better. Insomnia: multifactorial. H/o CHF and CAD: stable. Nutritional Asmnt/Malnutr-PDOC - Dietary Evaluation Malnutrition Findings (Please click <Entered> for more info): Nutritional Asmnt/Malnutrition Start: 10/26/18 14: 34 Text: Status: Complete Freq: Protocol: Document 10/26/18 14:34 LCRENUG (Rec: 10/26/18 14:57 MICHELLE [email or web address]) Nutritional Asmnt/Malnutrition Patient General Information Nutritional Screening High Risk Diagnosis sepsis, distened bladder Pertinent Medical Hx/Surgical Hx HTN, Asthma/COPD, dyslipidemia , s/p sepsis, s/p UTI, s/p CHF , malnutrition, myocardial infarction, BPH, polyneuropathy Subjective Information Pt seen lying in bed at time of visit, awake and alert. Pt stated he has excellent appetite, like potatoes. Pt showed he has partial teeth, sometimes hard to chew meat, but pt refused mech soft chopped diet said he is able to cut food himself. Let pt know he can ask for substitution if the meat is hard to chew for him. Pt showed understanding. Per EMR, PO intake 75-100%. Current Diet Order/ Nutrition Support DEBRA Pertinent Medications vit C, lipitor, colace, folate , lasix, culturelle, piperacillin, Kcl, senna Pertinent Labs 10/25 K 3.4, glucose 128 10/24 K 3.5, glucose 124 Nutritional Hx/Data Height 1.83 m Height (Calculated Centimeters) 182.9 Current Weight (lbs) 90.718 kg Weight (Calculated Kilograms) 90.7 Weight (Calculated Grams) 90233.5 [place] Body Weight 178 Body Mass Index (BMI) 27.1 Weight Status Overweight GI Symptoms GI Symptoms None Last BM 10/26 Difficult in: None Skin Integrity/Comment: reddened to R/L dorsal foot, scrotum, scar to left buttocks , decubitus pressure area to sacrum Current %PO Good (75-100%) Estimated Nutritional Goals BEE in Kcals: Using Current wt Calories/Kcals/Kg 25-30 Kcals Calculated 7236-0094 Protein: Using Current wt Protein g/k Protein Calculated 91 Fluid: ml 2275-2730ml (1ml/kcal) Nutritional Problem 1. Problem Problem altered nutrition related labs Etiology electrolytes imbalance Signs/Symptoms: K 3.4 Malnutrition Alert Is there a minimum of two criteria No selected? Query Text:Check all the applicable criteria. A minimum of two criteria are recommended for diagnosis of either severe or non-severe malnutrition. Malnutrition Related to Morbid Obesity Malnutrition related to morbid obesity No Intervention/Recommendation Comments 1. Continue with DEBRA diet as ordered. Diet preference updated. 2. Monitor PO intake, wt, labs and skin integrity 3. F/U as moderate risk in 3-5 days, 10/29-10/31 Expected Outcomes/Goals Expected Outcomes/Goals 1. PO intake to meet at least 75% of nutritional needs. 2. Wt stability, skin to remain intact, labs to approach WNL.
[2018-10-27] MEDS ORDERED: Potassium Chloride 20 mEq ER Tab PO ONE
[2018-10-27] MEDS: Morphine Sulfate 4 mg/mL 1mL Syr IVP PRN ×6 (00:26→20:47)
[2018-10-27 05:11] LABS: % BASOPHILS 0.7 % (0.0-2.0); % EOSINOPHILS 4.1 % (0.0-5.0); % LYMPHOCYTES 33.8 % (20.0-50.0); % MONOCYTES 4.5 % (2.0-10.0); % NEUTROPHILS 56.9 % (40.0-80.0); EOSINOPHILE ABSOLUTE 0.3 Th/cmm (0.1-0.4); HEMOGLOBIN 13.4 gm/dL (12-16); LYMPHOCYTE ABSOLUTE 2.1 Th/cmm (1.5-3.0); MEAN CELL VOLUME 96.1 fl (80-99); MEAN CORPUSCULAR HEMOGLOBIN 31.5 pg (27.0-31.0); MEAN CORPUSCULAR HGB CONC 32.8 pg (28.0-36.0); MEAN PLATELET VOLUME 8.3 fl; MONOCYTE ABSOLUTE 0.3 Th/cmm (0.3-1.0); NEUTROPHILE ABSOLUTE 3.4 Th/cmm (1.8-8.0); PLATELET COUNT 209 Th/cmm (150-400); RED BLOOD COUNT 4.26 Mil/cmm (3.80-5.80); RED CELL DISTRIBUTION WIDTH 14.1 % (11.5-20.0); WHITE BLOOD COUNT 6.1 Th/cmm (4.8-10.8)
[2018-10-27 06:10] LABS: ALBUMIN 3.1 gm/dL (4.2-5.5); ALKALINE PHOSPHATASE 58 U/L (34-104); ANION GAP 12.2 (7.0-16.0); BILIRUBIN,TOTAL 0.4 mg/dL (0.3-1.0); BUN - UREA NITROGEN 13 mg/dL (7-25); CALCIUM SERUM 9.4 mg/dL (8.6-10.3); CARBON DIOXIDE 24.8 mEq/L (21.0-31.0); CHLORIDE 109 mEq/L (98-107); CREATININE - SERUM 0.8 mg/dL (0.7-1.3); GFR AFRICAN-AMERICAN > 60.0 ml/min (>90); GFR NON AFRICAN-AMERICAN > 60.0 ml/min; GLUCOSE 114 mg/dL (70-105); MAGNESIUM 1.9 mg/dL (1.9-2.7); SGOT 11 U/L (13-39); SGPT/ALT 18 U/L (7-52); SODIUM SERUM 142 mEq/L (136-145); TOTAL PROTEIN,SERUM 6.1 gm/dL (6.0-8.3)
[2018-10-27] MEDS: Lactobacillus Rhamnosus GG 15 Billion CFU CAP.SPRINK PO SCH (09:05)
[2018-10-27] MEDS: Atorvastatin Calcium 10 MG TAB PO SCH (09:06)
[2018-10-27] MEDS: Nicotine 7 mg/24 hr Tdm TD SCH (09:07)
[2018-10-27] MEDS: Potassium Chloride 10 MEQ in D5-0.9%NS 1,000 ML IV SCH ×2 (10:15→21:00)
--- NOTE | 2018-10-27 21:55 | Internal Medicine Prog Note ---
Internal Medicine Subjective - Subjective Service Date: 10/27/18 Patient seen and examined:: with staff Patient is:: awake, verbal, interactive, in bed Patient Complaints of:: pain with urination, unable to sleep Per staff patient has:: no adverse event Internal Medicine Objective - Results Result Diagrams: 10/27/18 04:50 10/27/18 04:50 Recent Labs: Laboratory Last Values WBC 6.1 Th/cmm (4.8-10.8) 10/27/18 04:50 RBC 4.26 Mil/cmm (3.80-5.80) 10/27/18 04:50 Hgb 13.4 gm/dL (12-16) 10/27/18 04:50 Hct 41.0 % (41.0-60) 10/27/18 04:50 MCV 96.1 fl (80-99) 10/27/18 04:50 MCH 31.5 pg (27.0-31.0) H 10/27/18 04:50 MCHC Differential 32.8 pg (28.0-36.0) 10/27/18 04:50 RDW 14.1 % (11.5-20.0) 10/27/18 04:50 Plt Count 209 Th/cmm (150-400) 10/27/18 04:50 MPV 8.3 fl 10/27/18 04:50 Add Manual Diff YES 10/24/18 19:14 Neutrophils % 56.9 % (40.0-80.0) 10/27/18 04:50 Band Neutrophils % 2 % (0-10) 10/24/18 19:14 Lymphocytes % 33.8 % (20.0-50.0) 10/27/18 04:50 Monocytes % 4.5 % (2.0-10.0) 10/27/18 04:50 Eosinophils % 4.1 % (0.0-5.0) 10/27/18 04:50 Basophils % 0.7 % (0.0-2.0) 10/27/18 04:50 Neutrophils (Manual) 84 % (40-80) H 10/24/18 19:14 Lymphocytes 12 % (20-50) L 10/24/18 19:14 Monocytes 2 % (2-10) 10/24/18 19:14 Eosinophils 0 % (0-5) 10/24/18 19:14 Basophils 0 % (0-3) 10/24/18 19:14 Platelet Estimate ADEQUATE (NORMAL) 10/23/18 01:49 PT 10.0 SECONDS (9.5-11.5) 10/23/18 01:49 INR 0.96 (0.5-1.4) 10/23/18 01:49 PTT (Actin FS) 27.6 SECONDS (26.0-38.0) 10/23/18 01:49 Sodium 142 mEq/L (136-145) 10/27/18 04:50 Potassium 4.0 mEq/L (3.5-5.1) 10/27/18 04:50 Chloride 109 mEq/L (98-107) H 10/27/18 04:50 Carbon Dioxide 24.8 mEq/L (21.0-31.0) 10/27/18 04:50 Anion Gap 12.2 (7.0-16.0) 10/27/18 04:50 BUN 13 mg/dL (7-25) 10/27/18 04:50 Creatinine 0.8 mg/dL (0.7-1.3) 10/27/18 04:50 Est GFR ( Amer) > 60.0 ml/min (>90) 10/27/18 04:50 Est GFR (Non-Af Amer) > 60.0 ml/min 10/27/18 04:50 BUN/Creatinine Ratio 16.3 10/27/18 04:50 Glucose 114 mg/dL (70-105) H 10/27/18 04:50 POC Glucose 140 MG/DL (70 - 105) H 10/23/18 09:06 Whole Bld Lactic Acid 1.90 mmol/L (0.60-1.99) 10/23/18 17:55 Calcium 9.4 mg/dL (8.6-10.3) 10/27/18 04:50 Magnesium 1.9 mg/dL (1.9-2.7) 10/27/18 04:50 Total Bilirubin 0.4 mg/dL (0.3-1.0) 10/27/18 04:50 AST 11 U/L (13-39) L 10/27/18 04:50 ALT 18 U/L (7-52) 10/27/18 04:50 Alkaline Phosphatase 58 U/L (34-104) 10/27/18 04:50 B-Natriuretic Peptide 42.9 pg/mL (5.0-100.0) 10/25/18 06:09 Total Protein 6.1 gm/dL (6.0-8.3) 10/27/18 04:50 Albumin 3.1 gm/dL (4.2-5.5) L 10/27/18 04:50 Globulin 3.0 gm/dL 10/27/18 04:50 Albumin/Globulin Ratio 1.0 (1.0-1.8) 10/27/18 04:50 Urine Source [place] 10/23/18 17:00 Urine Color YELLOW 10/23/18 17:00 Urine Clarity CLOUDY (CLEAR) 10/23/18 17:00 Urine pH 6.0 (4.6 - 8.0) 10/23/18 17:00 Ur Specific [place] 1.020 (1.005-1.030) 10/23/18 17:00 Urine Protein 100 mg/dL (NEGATIVE) H 10/23/18 17:00 Urine Glucose (UA) NEGATIVE mg/dL (NEGATIVE) 10/23/18 17:00 Urine Ketones TRACE mg/dL (NEGATIVE) 10/23/18 17:00 Urine Blood LARGE (NEGATIVE) H 10/23/18 17:00 Urine Nitrate NEGATIVE (NEGATIVE) 10/23/18 17:00 Urine Bilirubin SMALL (NEGATIVE) H 10/23/18 17:00 Urine Urobilinogen 0.2 E.U./dL (0.2 - 1.0) 10/23/18 17:00 Ur Leukocyte Esterase MODERATE (NEGATIVE) H 10/23/18 17:00 Urine RBC 10-25 /hpf (0-5) H 10/23/18 17:00 Urine WBC 6-10 /hpf (0-5) 10/23/18 17:00 Ur Epithelial Cells MODERATE /lpf (FEW) 10/23/18 17:00 Urine Bacteria 2+ /hpf (NONE SEEN) H 10/23/18 17:00 - Physical Exam Vitals and I&O: Vital Signs Temp 97.6 F 10/27/18 20:00 Pulse 63 10/27/18 20:00 Resp 17 10/27/18 20:00 BP 146/72 10/27/18 20:00 Pulse Ox 97 10/27/18 20:00 Intake & Output 10/27/18 10/27/18 10/28/18 06:59 18:59 06:59 Intake Total 460 700 967.5 Output Total 3150 2000 Balance -2690 -1300 967.5 Weight (lbs) 90.718 kg 90.718 kg Intake: Intake, IV Amount 150 100 967.5 Piperacillin Sodium/ 100 100 Tazobact 3.375 gm In Sodium Chloride 0.9% 50 ml @ 100 mls/hr IV Q6H [facility] Rx#:[id number] Potassium Chloride 10 meq 967.5 In D5-0.9%Ns 1,000 ml @ 90 mls/hr IV .[id number] [facility] Rx#:[id number] Oral 310 600 Output: Urine 3150 2000 Other: # Bowel Movements 1 1 Stool Characteristics Formed Formed Brown Brown Weight Source Bedscale Bedscale Active Medications: Current Medications Acetaminophen (Tylenol) 650 mg PO Q4H PRN PRN Reason: Fever > 101 Stop: 12/22/18 12:56 Last Admin: 10/23/18 20:22 Dose: 650 mg Acetaminophen (Tylenol) 325 mg PO Q6HR PRN PRN Reason: Mild Pain or Fever >101 Stop: 12/22/18 23:25 Last Admin: 10/24/18 04:23 Dose: 325 mg Albuterol/Ipratropium (Duoneb Neb) 3 ml HHN Q6HRT PRN PRN Reason: Shortness of Breath Stop: 12/22/18 23:25 Ascorbic Acid (Vitamin C) 250 mg PO DAILY [facility] Stop: 12/23/18 08:59 Last Admin: 10/27/18 09:06 Dose: 250 mg Atorvastatin Calcium (Lipitor) 20 mg PO DAILY [facility] Stop: 12/23/18 08:59 Last Admin: 10/27/18 09:06 Dose: 20 mg Baclofen (Lioresal) 10 mg PO QID [facility] Stop: 12/22/18 20:59 Last Admin: 10/27/18 20:47 Dose: 10 mg Bisacodyl (Dulcolax 10 Mg Supp) 10 mg RC DAILY PRN PRN Reason: Constipation Stop: 12/22/18 23:25 Diazepam (Valium) 5 mg PO BID [facility]; Protocol Stop: 12/24/18 08:59 Last Admin: 10/27/18 16:32 Dose: 5 mg Docusate Sodium (Colace) 100 mg PO DAILY [facility] Stop: 12/23/18 08:59 Last Admin: 10/27/18 09:06 Dose: 100 mg Duloxetine HCl (Cymbalta) 30 mg PO DAILY [facility]; Protocol Stop: 12/24/18 08:59 Last Admin: 10/27/18 09:07 Dose: 30 mg Finasteride (Proscar) 5 mg PO DAILY [facility]; Protocol Stop: 12/23/18 08:59 Last Admin: 10/27/18 09:07 Dose: 5 mg Folic Acid (Folate) 1 mg PO DAILY [facility] Stop: 12/23/18 08:59 Last Admin: 10/27/18 09:07 Dose: 1 mg Furosemide (Lasix) 20 mg PO DAILY [facility] Stop: 12/23/18 08:59 Last Admin: 10/27/18 09:07 Dose: 20 mg Gabapentin (Neurontin) 1,200 mg PO TID [facility] Stop: 12/23/18 08:59 Last Admin: 10/27/18 20:46 Dose: 1,200 mg Hydromorphone HCl (Dilaudid) 8 mg PO Q4H PRN PRN Reason: Pain (Severe) Last Admin: 10/25/18 22:08 Dose: 8 mg Potassium Chloride 10 meq/ (Dextrose/Sodium Chloride) 1,005 mls @ 90 mls/hr IV .[id number] [facility] Stop: 12/22/18 12:59 Last Admin: 10/27/18 21:00 Dose: 90 mls/hr Piperacillin Sod/Tazobactam (Sod 3.375 gm/ Sodium Chloride) 50 mls @ 100 mls/ hr IV Q6H [facility] Stop: 12/22/18 12:59 Last Admin: 10/27/18 21:01 Dose: 100 mls/hr Lactobacillus Rhamnosus (Culturelle 15b) 1 each PO DAILY [facility] Stop: 12/25/18 13:59 Last Admin: 10/27/18 09:05 Dose: 1 each Lorazepam (Ativan) 1 mg IV Q4H PRN; Protocol PRN Reason: Anxiety Stop: 12/22/18 22:24 Last Admin: 10/25/18 01:23 Dose: 1 mg Magnesium Hydroxide (Milk Of Magnesia) 30 ml PO HS PRN PRN Reason: Constipation Stop: 12/22/18 23:25 Last Admin: 10/25/18 22:08 Dose: 30 ml Methocarbamol (Robaxin) 500 mg PO DAILY [facility] Stop: 12/23/18 08:59 Last Admin: 10/27/18 09:06 Dose: 500 mg Miscellaneous (Probiotic Screen) 1 ea MC PRN PRN PRN Reason: PROTOCOL Stop: 12/25/18 11:39 Morphine Sulfate (Morphine) 4 mg IVP Q3H PRN PRN Reason: MODERATE TO SEVERE PAIN Stop: 12/22/18 22:20 Last Admin: 10/27/18 20:47 Dose: 4 mg Nicotine (Nicotine Transdermal System) 7 mg TD DAILY [facility] Stop: 12/24/18 19:59 Last Admin: 10/27/18 09:07 Dose: 7 mg Senna (Senna) 8.6 mg PO HS [facility] Stop: 12/23/18 20:59 Last Admin: 10/27/18 20:47 Dose: 8.6 mg Spironolactone (Aldactone) 25 mg PO DAILY [facility] Stop: 12/23/18 08:59 Last Admin: 10/27/18 09:06 Dose: 25 mg Tamsulosin HCl (Flomax) 0.4 mg PO DAILY [facility] Stop: 12/23/18 08:59 Last Admin: 10/27/18 09:05 Dose: 0.4 mg General: weak, congested HEENT: NC/AT, PERRLA, EOMI, anicteric sclerae, throat clear, thyromegaly Neck: Supple, No JVD, No thyromegaly Lungs: CTAB, congested Cardiovascular: RRR, Normal S1, Normal S2 Abdomen: soft, tender Extremities: clear, edema, pedal pulses Neurological: no change Internal Medicine Assmt/Plan - Assessment Assessment: Chronic pain syndrome exacerbation: partially due to MS? pain medication dose increased. Neurogenic bladder from MS: the main culprit of the pt's urinary retention. UTI: IVPB ABX. Hypokalemia: supplement. COPD: RT protocol. Hematuria & urinary retention: s/p Montero replacement. Early sepsis: resolving? Leukocytosis: much better. Insomnia: multifactorial. H/o CHF and CAD: stable. Nutritional Asmnt/Malnutr-PDOC - Dietary Evaluation Malnutrition Findings (Please click <Entered> for more info): Nutritional Asmnt/Malnutrition Start: 10/26/18 14: 34 Text: Status: Complete Freq: Protocol: Document 10/26/18 14:34 MICHELLE (Rec: 10/26/18 14:57 MICHELLE [email or web address]) Nutritional Asmnt/Malnutrition Patient General Information Nutritional Screening High Risk Diagnosis sepsis, distened bladder Pertinent Medical Hx/Surgical Hx HTN, Asthma/COPD, dyslipidemia , s/p sepsis, s/p UTI, s/p CHF , malnutrition, myocardial infarction, BPH, polyneuropathy Subjective Information Pt seen lying in bed at time of visit, awake and alert. Pt stated he has excellent appetite, like potatoes. Pt showed he has partial teeth, sometimes hard to chew meat, but pt refused mech soft chopped diet said he is able to cut food himself. Let pt know he can ask for substitution if the meat is hard to chew for him. Pt showed understanding. Per EMR, PO intake 75-100%. Current Diet Order/ Nutrition Support DEBRA Pertinent Medications vit C, lipitor, colace, folate , lasix, culturelle, piperacillin, Kcl, senna Pertinent Labs 10/25 K 3.4, glucose 128 10/24 K 3.5, glucose 124 Nutritional Hx/Data Height 1.83 m Height (Calculated Centimeters) 182.9 Current Weight (lbs) 90.718 kg Weight (Calculated Kilograms) 90.7 Weight (Calculated Grams) 23813.5 [place] Body Weight 178 Body Mass Index (BMI) 27.1 Weight Status Overweight GI Symptoms GI Symptoms None Last BM 10/26 Difficult in: None Skin Integrity/Comment: reddened to R/L dorsal foot, scrotum, scar to left buttocks , decubitus pressure area to sacrum Current %PO Good (75-100%) Estimated Nutritional Goals BEE in Kcals: Using Current wt Calories/Kcals/Kg 25-30 Kcals Calculated 8815-9202 Protein: Using Current wt Protein g/k Protein Calculated 91 Fluid: ml 2275-2730ml (1ml/kcal) Nutritional Problem 1. Problem Problem altered nutrition related labs Etiology electrolytes imbalance Signs/Symptoms: K 3.4 Malnutrition Alert Is there a minimum of two criteria No selected? Query Text:Check all the applicable criteria. A minimum of two criteria are recommended for diagnosis of either severe or non-severe malnutrition. Malnutrition Related to Morbid Obesity Malnutrition related to morbid obesity No Intervention/Recommendation Comments 1. Continue with DEBRA diet as ordered. Diet preference updated. 2. Monitor PO intake, wt, labs and skin integrity 3. F/U as moderate risk in 3-5 days, 10/29-10/31 Expected Outcomes/Goals Expected Outcomes/Goals 1. PO intake to meet at least 75% of nutritional needs. 2. Wt stability, skin to remain intact, labs to approach WNL.
[2018-10-28] MEDS: Morphine Sulfate 4 mg/mL 1mL Syr IVP PRN ×4 (01:02→12:17)
[2018-10-28] MEDS: Nicotine 7 mg/24 hr Tdm TD SCH (09:03)
[2018-10-28] MEDS: Lactobacillus Rhamnosus GG 15 Billion CFU CAP.SPRINK PO SCH (09:06)
[2018-10-28] MEDS: Atorvastatin Calcium 10 MG TAB PO SCH (09:08)
--- NOTE | 2018-10-29 16:31 | Discharge Summary ---
DATE OF DISCHARGE: 10/28/2018 FINAL DIAGNOSES: 1. Sepsis, resolved. 2. Distended bladder, improved. 3. Marked leukocytosis, resolved. 4. Hypokalemia, corrected. 5. Urinary tract infection, treated. 6. Hematuria, resolved. 7. Neurogenic bladder due to multiple sclerosis. HOSPITAL COURSE: The patient is a 68-year-old male admitted due to sepsis with marked leukocytosis and bladder distention. The patient also has hypokalemia and urinary tract infection. The patient was treated very successfully and appropriately and his white count come down significantly and sepsis, resolved. For the urinary retention, urology consultation requested and the patient had Mitchell replaced. Due to the nature of his urinary retention from multiple sclerosis: It was decided no need for any procedure. The patient agreed and the patient was discharged back to [facility]. DISCHARGE CONDITION: Stable. DISPOSITION: [facility]. DISCHARGE MEDICATION: Continue medication from here. DIET: Cardiac, soft diet. ACTIVITY: Bed rest with physical therapy. FOLLOWUP: One week. JOB# [id number]
== END 2018-10-28 12:38 | DRG 871 ==
LOC: ER 01:03 → TELE 07:13
PROVIDERS: ADMIT Internal Medicine; ATTEND Internal Medicine
DX: A41.9 Sepsis, unspecified organism (principal); G93.41 Metabolic encephalopathy; N39.0 Urinary tract infection, site not specified; G81.94 Hemiplegia, unspecified affecting left nondominant side; E87.6 Hypokalemia; J44.9 Chronic obstructive pulmonary disease, unspecified; E78.5 Hyperlipidemia, unspecified; I50.9 Heart failure, unspecified; I11.0 Hypertensive heart disease with heart failure; I25.2 Old myocardial infarction; N40.0 Benign prostatic hyperplasia without lower urinary tract symptoms; G62.9 Polyneuropathy, unspecified; G89.4 Chronic pain syndrome; I25.10 Atherosclerotic heart disease of native coronary artery without angina pectoris; G47.00 Insomnia, unspecified; G35 Multiple sclerosis; N31.2 Flaccid neuropathic bladder, not elsewhere classified; N32.89 Other specified disorders of bladder; N40.1 Benign prostatic hyperplasia with lower urinary tract symptoms; R33.8 Other retention of urine; R31.0 Gross hematuria; Z87.891 Personal history of nicotine dependence; Z74.01 Bed confinement status
CPT/HCPCS: 36415-UA; 71045-TC; 80048-TC; 80053-TC; 81001-TC; 82948-90; 83605; 83735-TC; 83880-TC; 85007-TC; 85025-TC; 85610-TC; 85730-TC; 87086-90; 94760; J0696; J1650; J1885; J2060; J2543; J3480; J7042; Z7610